=== PATIENT | female | born 1960 | race American Indian/Alaskan Native ===

== ENCOUNTER 2016-07-09 16:17 | Inpatient (IN) | payer BC ==
[2016-07-09 16:23] VITALS: BMI 17.7
[2016-07-09] MEDS ORDERED: Sodium Chloride 0.9% 1,000 ML IV STA (16:52)
[2016-07-09 17:20] LABS: ADD MANUAL DIFF? NO
--- NOTE | 2016-07-09 17:26 | ED PDOC ---
Arrival/HPI - General Chief Complaint: Abdominal Pain Time Seen by Provider: 07/09/16 16:21 Historian: Patient - History of Present Illness Narrative History of Present Illness (Text): 07/09/16 17:22 55yo female with PMhx of gastritis who present with complaint of constant diffuse sharp abdominal pain with associated nausea and vomiting since this morning. She notes previous history of similar pain in the past. she has been seen here multiple times in the past and the last time was last month. States she was suppose to see Doctor Gurpreet but have not seen him for over a year now. States she took Protonix and Zofran this morning without relieve. Denies fever, chills, diarrhea, melena, hematemesis, any other complaint. Past Medical History - Provider Review Nursing Documentation Reviewed: Yes - Infectious Disease Hx of Infectious Diseases: None - Tetanus Immunization Tetanus Immunization: Unknown - Past Medical History Past Medical History: No Previous - Cardiac Hx Cardiac Disorders: No - Pulmonary Hx Respiratory Disorders: Yes (SMOKES CIGARETTES 3 /DAY) - Neurological Hx Neurological Disorder: No - HEENT Hx HEENT Disorder: No - Renal Hx Renal Disorder: No - Endocrine/Metabolic Hx Endocrine Disorders: No - Hematological/Oncological Hx Blood Disorders: No - Integumentary Hx Dermatological Disorder: No - Musculoskeletal/Rheumatological Hx Falls: No Other/Comment: right shoulder tear - Gastrointestinal Hx Gastrointestinal Disorders: Yes Hx Gall Bladder Disease: Yes - Genitourinary/Gynecological Hx Genitourinary Disorders: No - Psychiatric Hx Psychophysiologic Disorder: Yes Hx Anxiety: Yes Hx Depression: Yes Hx Substance Use: No - Surgical History Hx Orthopedic Surgery: Yes (right hip replacement, right rotator cuff) Other/Comment: RIGHT SHOULDER SX, - Anesthesia Hx Anesthesia: Yes Hx Anesthesia Reactions: No Hx Malignant Hyperthermia: No - Suicidal Assessment Feels Threatened In Home Enviroment: No Family/Social History - Physician Review Nursing Documentation Reviewed: Yes Family/Social History: Unknown Family HX Smoking Status: Light Smoker < 10 Cigarettes Daily Hx Alcohol Use: No Hx Substance Use: No Substance used: weed Hx Substance Use Treatment: No Allergies/Home Meds Allergies/Adverse Reactions: Allergies blueberry Allergy (Verified 07/09/16 16:23) URTICARIA shellfish derived Allergy (Verified 07/09/16 16:23) RASH Home Medications: Home Meds Medication Instructions Recorded Confirmed ALPRAZolam [Xanax] 1 mg PO TID 03/29/16 07/09/16 Pantoprazole Sodium [Protonix] 40 mg PO DAILY 05/14/16 07/09/16 Sertraline [Zoloft] 0 mg PO DAILY 07/09/16 07/09/16 Review of Systems - Physician Review All systems were reviewed & negative as marked: Yes - Review of Systems Constitutional: Normal Eyes: Normal ENT: Normal Respiratory: Normal Cardiovascular: Normal Gastrointestinal: Abdominal Pain, Nausea, Vomiting. absent: Constipation, Diarrhea, Hematochezia, Hematemesis Genitourinary Female: Normal Musculoskeletal: Normal Skin: Normal Neurological: Normal Endocrine: Normal Hemo/Lymphatic: Normal Psychiatric: Normal Physical Exam Vital Signs Reviewed: Yes Vital Signs Temp Pulse Resp BP Pulse Ox 07/09/16 18:13 66 18 158/79 H 100 07/09/16 16:23 97.9 F 64 16 163/80 H 100 Temperature: Afebrile Blood Pressure: Normal Pulse: Regular Respiratory Rate: Normal Appearance: Positive for: Well-Appearing, Non-Toxic, Comfortable Pain Distress: None Mental Status: Positive for: Alert and Oriented X 3 - Systems Exam Head: Present: Atraumatic, Normocephalic Pupils: Present: PERRL Extroacular Muscles: Present: EOMI Conjunctiva: Present: Normal Mouth: Present: Moist Mucous Membranes Neck: Present: Normal Range of Motion Respiratory/Chest: Present: Clear to Auscultation, Good Air Exchange. No: Respiratory Distress, Accessory Muscle Use Cardiovascular: Present: Regular Rate and Rhythm, Normal S1, S2. No: Murmurs Abdomen: Present: Tenderness (Mild RUQ tenderness with deep palpation), Normal Bowel Sounds, Other (Soft). No: Distention, Peritoneal Signs, Rebound, Guarding , McBurney's Point Tender, Rovsing's Sign Present Back: Present: Normal Inspection Upper Extremity: Present: Normal Inspection. No: Cyanosis, Edema Lower Extremity: Present: Normal Inspection. No: Edema Neurological: Present: GCS=15, CN II-XII Intact, Speech Normal Skin: Present: Warm, Dry, Normal Color. No: Rashes Psychiatric: Present: Alert, Oriented x 3, Normal Insight, Normal Concentration Medical Decision Making ED Course and Treatment: 07/10/16 00:49 Pt presented for stated history. She was given antitussive and analgesic in ED. Lab was unremarkable. On re evaluation she states her nausea is coming back Another Zofran was ordered and Abdominal/Pelvis CT ordered Abdominal/Pelvic CT IMPRESSION: No acute findings. Result was DW the pt, but she still complained of persistent abdominal pain and nausea. Case was Dr. Angie Bueno's [employer] and pt was placed on OBS for intractable abdominal pain Plan was DW the pt and she agreed - Lab Interpretations Lab Results: 07/09/16 17:10 07/09/16 17:10 Lab Results 07/09/16 17:10: WBC 6.8 D, RBC 4.66, Hgb 14.6, Hct 41.8, MCV 89.7, MCH 31.3, MCHC 34.9, RDW 12.7, Plt Count 260, MPV 8.8, Gran % 88.8 H, Lymph % (Auto) 8.5 L , [place] % (Auto) 2.5, Eos % (Auto) 0.1 L, Baso % (Auto) 0.1, Gran # 6.03, Lymph # 0.6 L, [place] # 0.2, Eos # 0.0, Baso # 0.01, PT 11.4, INR 1.06, APTT 29.1, Sodium 141, Potassium 3.5 L, Chloride 104, Carbon Dioxide 23, Anion Gap 18, BUN 10, Creatinine 0.7, Est GFR ( Amer) > 60, Est GFR (Non-Af Amer) > 60, Random Glucose 124 H, Calcium 10.2, Total Bilirubin 1.4 H, AST 68 H, ALT 18, Alkaline Phosphatase 104, Total Protein 8.3, Albumin 4.7, Globulin 3.6, Albumin/ Globulin Ratio 1.3, Lipase 53 - Medication Orders Current Medication Orders: Discontinued Medications Famotidine (Pepcid) 20 mg IVP STAT STA Stop: 07/09/16 16:53 Last Admin: 07/09/16 17:15 Dose: 20 MG IVP Administration Document 07/09/16 17:15 SE (Rec: 07/09/16 17:15 SE [facility] [id number]) Charges for Administration # of IVP Administrations 1 Sodium Chloride (Sodium Chloride 0.9%) 1,000 mls @ 1,000 mls/hr IV .Q1H STA Stop: 07/09/16 17:51 Last Admin: 07/09/16 17:16 Dose: 1,000 MLS/HR eMAR Start Stop Document 07/09/16 17:16 SE (Rec: 07/09/16 17:16 SE [facility] [id number]) Intravenous Solution Start Date 07/09/16 Start Time 17:16 Ketorolac Tromethamine (Toradol) 30 mg IVP STAT STA Stop: 07/09/16 16:53 Last Admin: 07/09/16 17:16 Dose: 30 MG IVP Administration Document 07/09/16 17:16 SE (Rec: 07/09/16 17:16 SE [facility] [id number]) Charges for Administration # of IVP Administrations 1 Ondansetron HCl (Zofran Inj) 4 mg IVP STAT STA Stop: 07/09/16 16:53 Last Admin: 07/09/16 17:16 Dose: 4 MG IVP Administration Document 07/09/16 17:16 SE (Rec: 07/09/16 17:16 SE [facility] [id number]) Charges for Administration # of IVP Administrations 1 Ondansetron HCl (Zofran Inj) 4 mg IVP STAT STA Stop: 07/09/16 18:41 Last Admin: 07/09/16 18:53 Dose: 4 MG IVP Administration Document 07/09/16 18:53 SE (Rec: 07/09/16 18:53 SE [facility] [id number]) Charges for Administration # of IVP Administrations 1 Ondansetron HCl (Zofran Inj) 4 mg IVP STAT STA Stop: 07/09/16 23:44 Last Admin: 07/10/16 00:16 Dose: 4 MG IVP Administration Document 07/10/16 00:16 MR (Rec: 07/10/16 00:17 MR [facility] [id number]) Charges for Administration # of IVP Administrations 1 ED OBSERVATION Date of observation admission: 07/09/16 Time of observation admission: 18:25 - Observation admission statement Patient is being placed in observation because:: Lab ordered NS, Zofran, Pepcid ordered Pt will be re evaluated - Goals of Observation Goals of observation are:: Lab ordered NS, Zofran, Pepcid ordered Pt will be re evaluated Disposition/Present on Arrival - Present on Arrival Any Indicators Present on Arrival: No History of DVT/PE: No History of Uncontrolled Diabetes: No Urinary Catheter: No History of Decub. Ulcer: No History Surgical Site Infection Following: None - Disposition Have Diagnosis and Disposition been Completed?: Yes Diagnosis: Intractable abdominal pain, Gastritis Disposition: HOSPITALIZED Disposition Time: 23:25 Patient Plan: Discharge Patient Problems: Current Active Problems Problem Status Diagnosed Gastritis Acute Intractable abdominal pain Acute Condition: FAIR
[2016-07-09 17:27] LABS: BASO # 0.01 K/mm3 (0.0-2.0); BASO % 0.1 % (0.0-3.0); EOS % 0.1 % (1.5-5.0); GRAN # 6.03 (1.4-6.5); GRAN % 88.8 % (50.0-68.0); HEMATOCRIT 41.8 % (36.0-48.0); LYMPH # 0.6 (1.2-3.4); LYMPH % 8.5 % (22.0-35.0); MEAN CELL VOLUME 89.7 fL (80.0-105.0); MEAN CORPUSCULAR HEMOGLOBIN 31.3 pg (25.0-35.0); MEAN CORPUSCULAR HGB CONC 34.9 g/dl (31.0-37.0); MEAN PLATELET VOLUME 8.8 fl (7.0-11.0); MONO # 0.2 (0.1-0.6); MONO % 2.5 % (1.0-6.0); PLATELET COUNT 260 10^3/uL (120.0-450.0); RED CELL DISTRIBUTION WIDTH 12.7 % (11.5-14.5); WHITE BLOOD COUNT 6.8 10^3/ul (4.5-11.0)
[2016-07-09 17:36] LABS: INR 1.06 (0.93-1.08); PARTIAL THROMBOPLASTIN TIME 29.1 Seconds (23.7-30.8)
[2016-07-09 17:44] LABS: ALB/GLOB RATIO 1.3 (1.1-1.8); ALKALINE PHOSPHATASE 104 U/L (38-133); ALT/SGPT 18 U/L (7-56); AST/SGOT 68 U/L (15-39); BILIRUBIN,TOTAL 1.4 mg/dL (0.2-1.3); BLOOD UREA NITROGEN 10 mg/dL (7-21); CARBON DIOXIDE 23 mmol/L (21-33); CHLORIDE 104 mmol/L (98-107); GFR AFRICAN-AMERICAN > 60; GLUCOSE,RANDOM 124 mg/dL (70-110); LIPASE 53 U/L (23-300); POTASSIUM 3.5 mmol/L (3.6-5.0); SODIUM 141 mmol/L (132-148); TOTAL PROTEIN 8.3 g/dL (5.8-8.3)
[2016-07-09 17:45] LABS: CALCIUM 10.2 mg/dL (8.4-10.5)
[2016-07-10] MEDS ORDERED: Pneumococcal 23-Valent Vaccine IM ONE (03:18)
--- NOTE | 2016-07-10 03:25 | CP.PCM.PN ---
Subjective - Date & Time of Evaluation Date of Evaluation: 07/10/16 Time of Evaluation: 03:24 - Subjective Subjective: Patient was seen because she complained of nausea,abdominal pain,nervousness. Has no other complaints. States that she takes xanax 1 mg po 3 times a day and badly needs it. Denies chest solitario, sob, vomiting, diarrohea, constipation. This 55 year old woman was admitted with sharp abdominal pain, nausea, vomiting, Gastritis. Has PMH of HTN, gastritis, anxiety, depression , sbo, smoker, right shoulder tear, weed use,avascular necrosis of right hip. Objective - Vital Signs/Intake and Output Vital Signs (last 24 hours): Temp Pulse Resp BP Pulse Ox 98.1 F 60 20 121/80 100 07/10/16 03:08 07/10/16 03:08 07/10/16 03:08 07/10/16 03:08 07/10/16 02:18 - Medications Medications: Current Medications Pneumococcal Polyvalent Vaccine (Pneumovax 23 Vaccine) 0.5 ml IM .ONCE ONE Stop: 07/10/16 03:19 - Labs Labs: PT 11.4 Seconds (9.9-11.8) 07/09/16 17:10 INR 1.06 (0.93-1.08) 07/09/16 17:10 APTT 29.1 Seconds (23.7-30.8) 07/09/16 17:10 - Constitutional Appears: Well, No Acute Distress - Head Exam Head Exam: ATRAUMATIC, NORMAL INSPECTION, NORMOCEPHALIC - Eye Exam Eye Exam: Normal appearance - ENT Exam ENT Exam: Mucous Membranes Dry - Neck Exam Neck Exam: Normal Inspection - Respiratory Exam Respiratory Exam: NORMAL BREATHING PATTERN - Cardiovascular Exam Cardiovascular Exam: absent: JVD - GI/Abdominal Exam GI & Abdominal Exam: absent: Distended - Rectal Exam Rectal Exam: Deferred - Extremities Exam Extremities Exam: Normal Inspection - Back Exam Back Exam: NORMAL INSPECTION - Neurological Exam Neurological Exam: Alert, Oriented x3 - Psychiatric Exam Psychiatric exam: Normal Affect, Normal Mood - Skin Skin Exam: Dry Assessment and Plan - Assessment and Plan (Free Text) Assessment: A/P:Nausea. Abdominal pain. Anxiety. Gastritis. HTN. Zofran 4 mg IV Stat. Ativan 0.5 mg IV Stat. Protonix 40 mg IV Stat.
--- NOTE | 2016-07-10 08:46 | HP ---
HISTORY OF PRESENT ILLNESS: A 55-year-old white female with history of mild hypertension, alcohol ab use, recurrent abdominal pain admitted to the hospital with nausea, vomiting, severe abdominal pain, low-grade fever - spiked to 102 while here. Denies any diarrhea. Denies any history of cholecystiti s or appendicitis in the past, admitted with intractable pain. The patient denies any chills, but do es complain of some low-grade fever. Denies any cough, sputum production, chest pain, shortness of b reath, diaphoresis, etc. PHYSICAL EXAMINATION: GENERAL: Shows a well-developed, but thin black female in a position with abdominal pain. ABDOMEN: Nondistended. Bowel sounds are hypoactive. It is minimally tender in all quadrants. CHEST: Clear to auscultation and percussion. HEART: Regular sinus rhythm. No S3, no murmurs. NEUROLOGIC: Grossly intact. EXTREMITIES: Without cyanosis, clubbing, or edema. IMPRESSION: Gastroenteritis, possible early pathology, as far as the gallbladder or appendix. CT is pending. PLAN: Plan is to hydrate, Pepcid, await cultures, check serologies, and CT. Donavan Adams MD cc: [id number] TT: 07/10/2016 08:46:25 jn
--- NOTE | 2016-07-10 08:49 | CT ---
PROCEDURE: CT Abdomen and Pelvis without intravenous contrast HISTORY: Abdominal pain COMPARISON: 05/14/2016 and 03/29/2016 TECHNIQUE: CT scan of the abdomen and pelvis was performed without administration of oral or intravenous contrast. Coronal and sagittal reformatted images were obtained. Radiation dose: Total exam DLP = 202.23 mGy-cm. This CT exam was performed using one or more of the following dose reduction techniques: Automated exposure control, adjustment of the mA and/or kV according to patient size, and/or use of iterative reconstruction technique. FINDINGS: LOWER THORAX: The lung bases are clear. LIVER: The liver is normal in size. There is no intrahepatic biliary ductal dilatation. GALLBLADDER AND BILE DUCTS: There are no calcified gallstones. PANCREAS: The pancreas is normal in size. There are no calcifications or ductal dilatation. SPLEEN: The spleen is normal in size. ADRENALS: Both adrenal glands are normal in size. KIDNEYS AND URETERS: Both kidneys are normal in size without hydronephrosis or nephrolithiasis. VASCULATURE: Unremarkable. No aortic aneurysm. BOWEL: There is mild fecalization of small bowel contents and prominent valvulae Sarah continent is. The colon is decompressed and unremarkable. APPENDIX: Unremarkable. Normal appendix. PERITONEUM: Unremarkable. No free fluid. No free air. LYMPH NODES: Unremarkable. No enlarged lymph nodes. BLADDER: Unremarkable. REPRODUCTIVE: Unremarkable. BONES: No acute fracture. Status post right hip arthroplasty. OTHER FINDINGS: None. IMPRESSION: Mild prominence of small bowel loops with mild fecalization of small bowel contents could be related to chronic stasis. No evidence of bowel obstruction. No CT evidence for acute appendicitis or obstructive uropathy. A preliminary report was provided by [facility].
[2016-07-10] MEDS: Sodium Chloride 0.9% 1,000 ML IV SCH ×2 (09:31→20:17)
--- NOTE | 2016-07-10 10:28 | CON ---
DATE: 07/10/2016 GASTROENTEROLOGY CONSULTATION REQUESTING PHYSICIAN: Donavan Adams MD. REASON FOR CONSULTATION: I have been asked to see this 55-year-old female with a longstanding histor y of chronic recurrent abdominal pain, anxiety disorder, depression, degenerative joint disease, stat us post right hip replacement who comes to the hospital with a 1-day history of nausea, vomiting, and diffuse abdominal pain. This was associated with a fever between 101-102 degrees Fahrenheit. The p atient states that her symptoms started after she found out that her has prostate cancer. Th e patient was hospitalized back in 04/2016 for abdominal pain, nausea, and vomiting, and at that time was found to have a partial small-bowel obstruction, which resolved with conservative medical treatme nt. CT scan of the abdomen and pelvis performed on this admission showed almost complete resolution of he r dilated loops of small bowel with now minimally distended small-bowel loops without any air fluid l evels. She denies any fevers or chills. The patient states that she had a bowel movement yesterday. PAST MEDICAL HISTORY: As above. Again, the patient has a history of chronic recurrent abdominal lesley n, degenerative joint disease, anxiety, depression. PAST SURGICAL HISTORY: Notable for right hip replacement and right rotator cuff surgery. SOCIAL HISTORY: She denies alcohol use or drug use. She smokes less than a half pack of cigarettes per day. MEDICATIONS: Her medications currently include alprazolam, pantoprazole, and sertraline. FAMILY HISTORY: Noncontributory. REVIEW OF SYSTEMS: A 14-point review of systems is notable for abdominal pain, nausea, vomiting. PHYSICAL EXAMINATION: GENERAL: Well-developed female, lying in bed in no acute distress. VITAL SIGNS: Reveal temperature of 99.2, blood pressure 163/80, heart rate of 80. T-max is 100.3. HEENT: Reveal sclerae to be white. Oral mucosa is moist. NECK: Supple. CHEST: Reveals lungs to be clear. HEART: Reveals a regular rate and rhythm. ABDOMEN: Soft, nontender. No mass. EXTREMITIES: Show no edema. LABORATORY DATA: Reveal white blood cell count 6.8. On admission to the Emergency Room, it was 12.8 . Chemistries reveal potassium of 3.5, blood sugar 124, total bilirubin 1.4, AST of 68, lipase of 62 . IMPRESSION: A 55-year-old female with chronic recurrent abdominal pain, history of partial small-bow el obstruction 2 months ago, now admitted with abdominal pain, nausea, and vomiting. CT scan of the abdomen and pelvis shows no evidence of small-bowel obstruction, no acute findings. The patient may have an acute gastroenteritis with the fever. White count has come down to normal. RECOMMENDATIONS: 1. Continue conservative treatment. I will start the patient on IV Reglan, as well as IV pantoprazo le. 2. Advance diet as tolerated. 3. Check blood cultures. Darwin Vázquez MD cc: [id number] TT: 07/10/2016 10:28:28 Confirmation # [id number] Dictation # [id number] jn
[2016-07-11] MEDS: Sodium Chloride 0.9% 1,000 ML IV SCH (05:43)
[2016-07-11 06:47] LABS: PH,URINE 6.5 (4.7-8.0); URINE BILIRUBIN NEGATIVE (NEGATIVE); URINE BLOOD SMALL (NEGATIVE); URINE GLUCOSE (UA) NEGATIVE (NEGATIVE); URINE KETONE 15 mg/dL (NEGATIVE); URINE LEUKOCYTE ESTERASE NEGATIVE Leu/uL (NEGATIVE); URINE PROTEIN TRACE mg/dL (<30 mg/dL); URINE UROBILINOGEN 0.2 E.U./dL (<1 E.U./dL)
[2016-07-11 06:48] LABS: URINE APPEARANCE CLEAR (CLEAR); URINE COLOR YELLOW (YELLOW)
[2016-07-11 07:05] LABS: URINE WBC 0 - 2 /hpf (0-6)
[2016-07-11 07:06] LABS: URINE BACTERIA RARE (NEG)
[2016-07-11 09:19] VITALS: BP 144/87; PULSE 67; RESP 18; TEMP 99.2; O2SAT 98
--- NOTE | 2016-07-11 09:35 | PN ---
DATE: 07/11/2016 A 55-year-old black female admitted to the hospital with abdominal pain, early bowel obstruction, kaci sea and vomiting, dehydration. The patient has had history of small bowel obstruction in the past po sitive. She did have elevated fevers, which is resolved now. She still has some nausea, but no furt her vomiting. She is tolerating her clear liquids today. PLAN: To increase her diet. DC home if improved. Vital signs are stable. is unremarkable except for some fatigue and weakness, and some slight nausea. Donavan Adams MD cc: [id number] TT: 07/11/2016 09:35:13 Confirmation # [id number] Dictation # [id number] jn
--- NOTE | 2016-07-11 11:06 | PN ---
DATE: 07/11/2016 SUBJECTIVE: The patient is lying in bed. Her last episode of vomiting was last night. She has not had any vomiting this morning. She tolerated some fruit cocktail. Her abdominal pain is less. She has not had any further fevers or chills. PHYSICAL EXAMINATION: VITAL SIGNS: Reveal temperature of 99.2, blood pressure 144/87, heart rate 67. ABDOMEN: Soft, less diffuse tenderness. No rebound, no guarding. There are no new laboratory data. IMPRESSION: A 55-year-old female admitted to the hospital with abdominal pain, nausea, vomiting, wit h CT scan of the abdomen and pelvis showing improvement of a small bowel obstructive pattern from 04/24 017 with decreased distention of the small bowel, presenting with fever this admission. I suspect th at this is a gastroenteritis. She is moving her bowels. She has not had any further nausea and vomi ting. RECOMMENDATIONS: The patient is to be discharged home with outpatient followup including a low resid ue, low-fat, lactose-free diet. Darwin Vázquez MD cc: [id number] TT: 07/11/2016 11:06:20 Confirmation # [id number] Dictation # [id number]
[2016-07-15 15:02] LABS: ACETONE None Detected; ETHANOL None Detected; ISOPROPANOL None Detected; METHANOL None Detected
== END 2016-07-11 12:33 | disposition home or self-care (01) | DRG 392 ==
LOC: ED 16:17 → EROBSV 18:24 → ERH 23:25 → 3RSO 07-10 02:36 → OBSVTOIN 07-10 15:17
PROVIDERS: ADMIT Internal Medicine; ATTEND Internal Medicine
DX: K52.9 Noninfective gastroenteritis and colitis, unspecified (principal); I10 Essential (primary) hypertension; K29.00 Acute gastritis without bleeding; F32.9 Major depressive disorder, single episode, unspecified; F41.9 Anxiety disorder, unspecified; Z96.641 Presence of right artificial hip joint; M19.90 Unspecified osteoarthritis, unspecified site; F17.210 Nicotine dependence, cigarettes, uncomplicated; F12.90 Cannabis use, unspecified, uncomplicated

== ENCOUNTER 2016-08-11 23:01 | Observation (INO) | payer BC ==
[2016-08-11 23:15] VITALS: BMI 16.1
[2016-08-11] MEDS ORDERED: Morphine 2 mg/ml ISec IVP STA (23:39)
--- NOTE | 2016-08-11 23:43 | ED PDOC ---
Arrival/HPI - General Chief Complaint: GI Problem Time Seen by Provider: 08/11/16 23:32 Historian: Patient - History of Present Illness Narrative History of Present Illness (Text): 08/11/16 23:41 Nereida Rahman is a 55 year old female, with a history of gastroenteritis, presents to the emergency department complaining of abdominal pain associated with nausea and frequent episodes of vomiting since 4 pm today. states that symptoms are similar to pervious episodes of "gastroenteritis". Denies any fever, chills, headache, dizziness, chest pain, shortness of breath, back pain, urinary symptoms, or any other complaints at this time. Time/Duration: 4-6 hours Symptom Onset: Gradual Symptom Course: Unchanged Severity Level: Mild Activities at Onset: Light Context: Home Past Medical History - Provider Review Nursing Documentation Reviewed: Yes - Infectious Disease Hx of Infectious Diseases: None - Tetanus Immunization Tetanus Immunization: Unknown - Past Medical History Past Medical History: No Previous - Cardiac Hx Cardiac Disorders: No - Pulmonary Hx Respiratory Disorders: Yes (SMOKES CIGARETTES 3 /DAY) - Neurological Hx Neurological Disorder: No - HEENT Hx HEENT Disorder: No - Renal Hx Renal Disorder: No - Endocrine/Metabolic Hx Endocrine Disorders: No - Hematological/Oncological Hx Blood Disorders: No - Integumentary Hx Dermatological Disorder: No - Musculoskeletal/Rheumatological Hx Falls: Yes - Gastrointestinal Hx Gastrointestinal Disorders: Yes Hx Gall Bladder Disease: Yes - Genitourinary/Gynecological Hx Genitourinary Disorders: No - Psychiatric Hx Psychophysiologic Disorder: Yes Hx Anxiety: Yes Hx Depression: Yes Hx Substance Use: No - Surgical History Hx Orthopedic Surgery: Yes (right hip replacement, right rotator cuff) Other/Comment: RIGHT SHOULDER SX, - Anesthesia Hx Anesthesia: Yes Hx Anesthesia Reactions: No Hx Malignant Hyperthermia: No - Suicidal Assessment Feels Threatened In Home Enviroment: No Family/Social History - Physician Review Nursing Documentation Reviewed: Yes Family/Social History: No Known Family HX Smoking Status: Current Some Days Smoker Hx Alcohol Use: No Hx Substance Use: No Substance used: weed Hx Substance Use Treatment: No Allergies/Home Meds Allergies/Adverse Reactions: Allergies blueberry Allergy (Verified 07/09/16 16:23) URTICARIA shellfish derived Allergy (Verified 07/09/16 16:23) RASH Home Medications: Home Meds Medication Instructions Recorded Confirmed ALPRAZolam [Xanax] 1 mg PO TID 03/29/16 07/10/16 Pantoprazole Sodium [Protonix] 40 mg PO DAILY 05/14/16 07/10/16 Sertraline [Zoloft] 0 mg PO DAILY 07/09/16 07/09/16 Review of Systems - Physician Review All systems were reviewed & negative as marked: Yes - Review of Systems Constitutional: Normal. absent: Fatigue, Fevers Gastrointestinal: Abdominal Pain, Nausea, Vomiting. absent: Diarrhea Neurological: Normal. absent: Headache, Dizziness Psychiatric: Normal Physical Exam Vital Signs Reviewed: Yes Vital Signs Temp Pulse Resp Pulse Ox 08/11/16 23:13 97.9 F 64 16 100 Temperature: Afebrile Blood Pressure: Normal Pulse: Regular Respiratory Rate: Normal Appearance: Positive for: Well-Appearing, Non-Toxic, Comfortable Pain Distress: None Mental Status: Positive for: Alert and Oriented X 3 - Systems Exam Head: Present: Atraumatic, Normocephalic Pupils: Present: PERRL Conjunctiva: Present: Normal Mouth: Present: Moist Mucous Membranes Respiratory/Chest: Present: Clear to Auscultation, Good Air Exchange. No: Respiratory Distress, Accessory Muscle Use Cardiovascular: Present: Regular Rate and Rhythm, Normal S1, S2. No: Murmurs Abdomen: Present: Tenderness (mid abdomen), Normal Bowel Sounds. No: Distention , Peritoneal Signs, Rebound, Guarding Upper Extremity: Present: Normal Inspection. No: Cyanosis, Edema Lower Extremity: Present: Normal Inspection. No: Edema Neurological: Present: GCS=15, CN II-XII Intact, Speech Normal, Motor Func Grossly Intact, Normal Sensory Function Skin: Present: Warm, Dry, Normal Color. No: Rashes Psychiatric: Present: Alert, Oriented x 3, Normal Insight, Normal Concentration Medical Decision Making ED Course and Treatment: 08/11/16 23:46 Impression: A 55 year old female who presents to the emergency department complaining of lower abdominal pain associated with nausea and vomiting since 4 pm today. Plan: -- CT abdomen pelvis -- Labs -- Morphine -- IV fluids -- Zofran -- HCG -- Urinalysis -- Reassess and disposition Progress Notes: 08/12/16 03:10 CT abdomen pelvis reviewed: No acute findings. 08/12/16 03:23 Case discussed with 's nurse practitioner who is aware of the plan to place pt. med-surg for ongoing management /treatment of intractable vomiting. Accepts patient under 's service with Dr. Vázquez on GI consult. - Lab Interpretations Lab Results: 08/12/16 00:04 08/12/16 00:04 Lab Results 08/12/16 01:00: Urine Color Light yellow, Urine Appearance Clear, Urine pH 8.0, Ur Specific Bee 1.020, Urine Protein Negative, Urine Glucose (UA) Negative, Urine Ketones Trace H, Urine Blood Negative, Urine Nitrate Negative, Urine Bilirubin Negative, Urine Urobilinogen 0.2, Ur Leukocyte Esterase Negative, Urine HCG, Qual Negative 08/12/16 00:04: WBC 9.0 D, RBC 4.57, Hgb 14.4, Hct 41.3, MCV 90.4, MCH 31.5, MCHC 34.9, RDW 12.6, Plt Count 280, MPV 9.0 08/12/16 00:04: Sodium 139, Potassium 3.8, Chloride 102, Carbon Dioxide 26, Anion Gap 15, BUN 10, Creatinine 0.7, Est GFR ( Amer) > 60, Est GFR (Non- Af Amer) > 60, Random Glucose 120 H, Calcium 9.8, Total Bilirubin 1.3, AST 70 H , ALT 26, Alkaline Phosphatase 98, Total Protein 8.1, Albumin 5.0 H, Globulin 3.1, Albumin/Globulin Ratio 1.6, Lipase 31 I have reviewed the lab results: Yes - RAD Interpretation Narrative RAD Interpretations (Text): EXAM: CT Abdomen and Pelvis Without Intravenous Contrast FINDINGS: Abdomen pelvis:Liver, gallbladder, spleen, pancreas, both adrenals and both kidneys are normal.No renal calculi or hydronephrosis.Normal caliber aorta. Normal caliber appendix. No bowel obstruction. Unremarkable uterus. No adnexal masses. No free fluid or free air. There is some artifact in the pelvis from a right hip arthroplasty. IMPRESSION: No acute findings. Radiology Orders: 08/12/16 01:29 ABD & PELVIS W/O PO OR IV CONT [CT] Stat Online Marketer: Radiologist - Medication Orders Current Medication Orders: Sodium Chloride (Sodium Chloride 0.9%) 1,000 mls @ 100 mls/hr IV .Q10H STA Stop: 08/12/16 13:23 Ondansetron HCl (Zofran Inj) 4 mg IVP Q4H PRN PRN Reason: Nausea/Vomiting Stop: 08/12/16 11:00 Discontinued Medications Diphenhydramine HCl (Benadryl) 25 mg IVP ONCE ONE Stop: 08/12/16 01:18 Last Admin: 08/12/16 01:31 Dose: 25 mg Sodium Chloride (Sodium Chloride 0.9%) 1,000 mls @ 999 mls/hr IV .Q1H1M STA Stop: 08/12/16 00:39 Last Admin: 08/12/16 01:45 Dose: 999 mls/hr Metoclopramide HCl (Reglan) 10 mg IVP ONCE ONE Stop: 08/12/16 01:18 Last Admin: 08/12/16 01:31 Dose: 10 mg Morphine Sulfate (Morphine) 2 mg IVP STAT STA Stop: 08/11/16 23:40 Last Admin: 08/12/16 00:12 Dose: 2 mg Ondansetron HCl (Zofran Inj) 4 mg IVP ONCE ONE Stop: 08/11/16 23:40 Last Admin: 08/12/16 00:12 Dose: 4 mg Ondansetron HCl (Zofran Inj) Confirm Administered Dose 4 mg .ROUTE .STK-MED ONE Stop: 08/11/16 23:46 - Scribe Statement The provider has reviewed the documentation as recorded by the Stevan Gomez Provider Attestation: All medical record entries made by the Breanaibguillermo were at my direction and personally dictated by me. I have reviewed the chart and agree that the record accurately reflects my personal performance of the history, physical exam, medical decision making, and the department course for this patient. I have also personally directed, reviewed, and agree with the discharge instructions and disposition. Disposition/Present on Arrival - Present on Arrival Any Indicators Present on Arrival: No History of DVT/PE: No History of Uncontrolled Diabetes: No Urinary Catheter: No History of Decub. Ulcer: No History Surgical Site Infection Following: None - Disposition Have Diagnosis and Disposition been Completed?: Yes Diagnosis: Intractable vomiting, Intractable abdominal pain Disposition: HOSPITALIZED Disposition Time: 03:34 Patient Plan: Observation Patient Problems: Current Active Problems Problem Status Onset Intractable abdominal pain Acute Intractable vomiting Acute Condition: STABLE [facility] - Follow up with primary
[2016-08-12] MEDS: Sodium Chloride 0.9% 1,000 ML IV STA ×2 (00:12→01:45)
[2016-08-12 00:46] LABS: ALKALINE PHOSPHATASE 98 U/L (38-133); ALT/SGPT 26 U/L (7-56); AST/SGOT 70 U/L (15-39); BILIRUBIN,TOTAL 1.3 mg/dL (0.2-1.3); BLOOD UREA NITROGEN 10 mg/dL (7-21); CALCIUM 9.8 mg/dL (8.4-10.5); CARBON DIOXIDE 26 mmol/L (21-33); CHLORIDE 102 mmol/L (95-110); GFR AFRICAN-AMERICAN > 60; GLUCOSE,RANDOM 120 mg/dL (70-110); LIPASE 31 U/L (23-300); POTASSIUM 3.8 mmol/L (3.6-5.0); SODIUM 139 mmol/L (132-148); TOTAL PROTEIN 8.1 g/dL (5.8-8.3)
[2016-08-12 00:51] LABS: ALB/GLOB RATIO 1.6 (1.1-1.8)
[2016-08-12 00:57] LABS: HEMATOCRIT 41.3 % (36.0-48.0); MEAN CELL VOLUME 90.4 fL (80.0-105.0); MEAN CORPUSCULAR HEMOGLOBIN 31.5 pg (25.0-35.0); MEAN CORPUSCULAR HGB CONC 34.9 g/dl (31.0-37.0); RED CELL DISTRIBUTION WIDTH 12.6 % (11.5-14.5)
[2016-08-12] MEDS ORDERED: DiphenhydrAMINE 50 mg/ml Inj IVP ONE (01:17)
[2016-08-12 01:18] LABS: URINE BILIRUBIN NEGATIVE (NEGATIVE); URINE BLOOD NEGATIVE (NEGATIVE); URINE GLUCOSE (UA) NEGATIVE (NEGATIVE); URINE KETONE TRACE mg/dL (NEGATIVE); URINE LEUKOCYTE ESTERASE NEGATIVE Leu/uL (NEGATIVE); URINE PROTEIN NEGATIVE mg/dL (<30 mg/dL); URINE UROBILINOGEN 0.2 E.U./dL (<1 E.U./dL)
[2016-08-12 01:23] LABS: URINE APPEARANCE CLEAR (CLEAR); URINE COLOR LIGHT YELLOW (YELLOW)
[2016-08-12] MEDS ORDERED: Sodium Chloride 0.9% 1,000 ML IV STA (03:24)
--- NOTE | 2016-08-12 07:54 | CT ---
PROCEDURE: CT Abdomen and Pelvis without intravenous contrast HISTORY: pain COMPARISON: None. TECHNIQUE: Without contrast.. Contrast Dose: 0 Radiation dose: Total exam DLP = 244.68 mGy-cm. This CT exam was performed using one or more of the following dose reduction techniques: Automated exposure control, adjustment of the mA and/or kV according to patient size, and/or use of iterative reconstruction technique. FINDINGS: LOWER THORAX: Unremarkable. LIVER: Unremarkable. No gross lesion or ductal dilatation. GALLBLADDER AND BILE DUCTS: Unremarkable. PANCREAS: Unremarkable. No gross lesion or ductal dilatation. SPLEEN: Unremarkable. ADRENALS: Unremarkable. No mass. KIDNEYS AND URETERS: Unremarkable. No hydronephrosis. No solid mass. VASCULATURE: Unremarkable. No aortic aneurysm. BOWEL: Unremarkable. No obstruction. No gross mural thickening. APPENDIX: Not identified. No secondary findings to suggest acute appendicitis. PERITONEUM: Unremarkable. No free fluid. No free air. LYMPH NODES: Unremarkable. No enlarged lymph nodes. BLADDER: Unremarkable. REPRODUCTIVE: Unremarkable uterus. BONES: Right hip arthroplasty. OTHER FINDINGS: None. IMPRESSION: No bowel obstruction. No evidence of urinary calculus or urinary tract obstruction. Right hip arthroplasty. Otherwise unremarkable examination. Preliminary interpretation of this examination was reported by [employer] at 2:07 a.m. on 08/12/2016. There is concurrence of this report with the preliminary interpretation.
--- NOTE | 2016-08-12 09:16 | HP ---
HISTORY OF PRESENT ILLNESS: The patient is a 55-year-old black female admitted to the hospital with intractable abdominal pain, nausea, vomiting. The patient has had multiple episodes in the past. CT of the abdomen and pelvis was negative for obstruction or urinary tract stones. The patient is afeb rile. Vital signs are stable. Blood pressure is slightly elevated at 162/84. Her white count was 9 .0. Laboratory data were unremarkable. Tox screen is still pending. Lipase is still pending. Cons ult and Dr. Vázquez is pending. PHYSICAL EXAMINATION: GENERAL: Shows a well-developed, thin black female in no apparent distress this morning, but drowsy. HEENT: Essentially normal limits. HEART: Regular sinus rhythm. No significant murmurs. ABDOMEN: Soft. Bowel sounds are hypoactive. Abdomen is nondistended. There is no tenderness on pa lpation. There is no organomegaly noted. There is no Roche's sign. CHEST: Clear to auscultation and percussion. IMPRESSION: Intractable nausea, vomiting, abdominal pain of unknown origin. History of depression, history of gastritis in the past. PLAN: To restart diet, hydrate. Recheck tox screen and lipase and GI consult. Donavan Adams MD cc: [id number] TT: 08/12/2016 09:15:57 md
[2016-08-12] MEDS: Pantoprazole 40 mg EC Tab PO SCH (10:23)
--- NOTE | 2016-08-12 12:18 | CON ---
DATE: 08/12/2016 REQUESTING PHYSICIAN: Dr. Donavan Adams. REASON FOR CONSULTATION: I have been asked to see this 55-year-old female with a history of chronic recurrent abdominal pain, nausea and vomiting. The patient has been admitted to the hospital on 2 prior occasions, in 06/2016 and 04/2016, for similar complaints. She has had numerous Emergency Room visits over the last 2 years with complaints of abdominal pain. She has had numerous imaging studies of the abdomen including a CAT scan which has been negative for any acute findings. She denies any hematemesis, melena, rectal bleeding, fevers or chills. She has had a negative endoscopies and colonoscopies in the past. CT scan of the abdomen and pelvis performed in the Emergency Room again is negative for any acute findings. PAST MEDICAL HISTORY: Notable for chronic recurrent abdominal pain, nausea, vomiting, anxiety, depression, degenerative joint disease. PAST SURGICAL HISTORY: Notable for right hip replacement, right rotator cuff surgery. SOCIAL HISTORY: She denies alcohol use. She does smoke up to a half pack of cigarettes per day. FAMILY HISTORY: Noncontributory. REVIEW OF SYSTEMS: A 14-point review of systems is notable for abdominal pain, nausea and vomiting. PHYSICAL EXAMINATION: GENERAL: Well-developed female lying in bed, in no acute distress. VITAL SIGNS: Reveal temperature of 98, blood pressure 162/84, heart rate is 78. HEENT: Reveal sclerae to be white, conjunctivae pink. NECK: Supple. CHEST: Reveals lungs to be clear. HEART: Reveals regular rate and rhythm. ABDOMEN: Soft. There is mild midabdominal tenderness. No rebound, no guarding. EXTREMITIES: Show no edema. LABORATORY DATA: Reveal white blood cell count 9, hemoglobin 14.4. Chemistries reveal AST 70, ALT 26, normal electrolytes. Urinalysis is normal. Toxicology screen in the past was positive for cocaine metabolites, cotinine, diphenhydramine, alprazolam, nordiazepam, temazepam, diazepam and THC. IMPRESSION: A 55-year-old female with chronic recurrent abdominal pain, nausea and vomiting with multi-substance drug use including diazepam, cocaine, nicotine , alprazolam and cannabis. I suspect her symptoms are related to this polysubstance use. Cannabis can cause hyperemesis syndrome. RECOMMENDATIONS: Continue supportive care including IV fluid hydration, Zofran and advance diet as tolerated. Darwin Vázquez MD cc: [id number] TT: 08/12/2016 12:17:43 Confirmation # [id number] Dictation # [id number] mn MTDD
[2016-08-12] MEDS: Sodium Chloride 0.9% 1,000 ML IV SCH (16:42)
[2016-08-12 17:25] LABS: ADD MANUAL DIFF? NO
[2016-08-12 17:47] LABS: GRAN % 84.5 % (50.0-68.0); HEMATOCRIT 41.8 % (36.0-48.0); LYMPH % 9.9 % (22.0-35.0); MEAN CELL VOLUME 88.7 fL (80.0-105.0); MEAN CORPUSCULAR HEMOGLOBIN 31.2 pg (25.0-35.0); MEAN CORPUSCULAR HGB CONC 35.2 g/dl (31.0-37.0); MONO % 5.6 % (1.0-6.0); PLATELET COUNT 305 10^3/uL (120.0-450.0); RED CELL DISTRIBUTION WIDTH 12.4 % (11.5-14.5); WHITE BLOOD COUNT 10.6 10^3/ul (4.5-11.0)
[2016-08-12 17:48] LABS: GRAN # 8.99 (1.4-6.5); LYMPH # 1.1 (1.2-3.4); MONO # 0.6 (0.1-0.6)
--- NOTE | 2016-08-13 10:21 | PN ---
DATE: 08/13/2016 SUBJECTIVE: A 55-year-old black female admitted to the hospital with intractable nausea and vomiting , negative CT scan, negative ____. The patient did spike to 102 last night. The patient has been cu ltured, pending. Her tox screen did show cannabis and cocaine and benzodiazepines. The patient also has a history of drinking. The patient still has nausea and vomiting and severe abdominal pain toda y. She is going for an endoscopy with Dr. Vázquez today. Cultures are pending on this patient. Physic al examination is unchanged. Her abdomen is soft, but the patient is vomiting at the bedside. She h as been given Zofran. She is being hydrated. Vital signs are stable. Plan is to do an endoscopy and try to control the vomiting. Once the patient can tolerate some liqui ds and solids, she will be discharged home. Discussion also as far as possible substance abuse couns eling to follow. PHYSICAL EXAMINATION: VITAL SIGNS: Stable. CHEST: Clear to auscultation and percussion. ABDOMEN: As stated, hypoactive bowel sounds, minimal discomfort. No distention. IMPRESSION: Intractable nausea and vomiting, substance abuse in a 55-year-old black female. Donavan Adams MD cc: [id number] TT: 08/13/2016 10:21:03 Confirmation # [id number] Dictation # [id number] tn
[2016-08-13 11:12] VITALS: O2SAT 100
[2016-08-13] MEDS ORDERED: Propofol 10 mg/ml Inj (20 ML) ONE (11:16)
[2016-08-13] MEDS ORDERED: Lactated Ringer's 1,000 ML IV SCH (11:33)
[2016-08-13 11:52] VITALS: TEMP 98.2
[2016-08-13 12:16] VITALS: BP 173/80; PULSE 64; RESP 17
[2016-08-13] MEDS: Pantoprazole 40 mg EC Tab PO SCH (12:52)
[2016-08-13] MEDS: Sodium Chloride 0.9% 1,000 ML IV SCH (13:12)
== END 2016-08-13 21:07 | disposition home or self-care (01) ==
LOC: ED 23:01 → ERH 08-12 03:22 → 5RSO 08-12 05:18
PROVIDERS: ADMIT Internal Medicine; ATTEND Internal Medicine
DX: K29.30 Chronic superficial gastritis without bleeding (principal); K44.9 Diaphragmatic hernia without obstruction or gangrene; R11.2 Nausea with vomiting, unspecified; M19.90 Unspecified osteoarthritis, unspecified site; F41.9 Anxiety disorder, unspecified; F32.9 Major depressive disorder, single episode, unspecified; F14.10 Cocaine abuse, uncomplicated; F12.10 Cannabis abuse, uncomplicated; F17.210 Nicotine dependence, cigarettes, uncomplicated; Z96.641 Presence of right artificial hip joint
CPT/HCPCS: 43239; 74176; 80053; 81003; 83690; 84703; 85025; 85027; 87040; 87086; 88305; 88342; 96361; 96374; 96375; 96376; 99285; G0378; G0480; J1200; J2270; J2405; J2704; J2765; J3010; J7040

== ENCOUNTER 2016-10-20 23:47 | Observation (INO) | payer MEDICAID, OTHER ==
[2016-10-21] VITALS: BMI 17.7
[2016-10-21] MEDS ORDERED: Sodium Chloride 0.9% 1,000 ML IV STA ×2 (00:12→06:03)
[2016-10-21] MEDS ORDERED: Morphine 4 mg/ml ISec IVP STA ×3 (00:12→03:39)
--- NOTE | 2016-10-21 00:17 | ED PDOC ---
Arrival/HPI - General Time Seen by Provider: 10/21/16 00:01 Historian: Patient - History of Present Illness Narrative History of Present Illness (Text): 10/21/16 00:11 Nereida Rahman is a 55 year old female, with a history of recurrent abdominal pain , anxiety and depression, presents to the emergency department complaining of diffuse abdominal pain associated with nausea and vomiting. Patient's states that she has recurrent "gastroenteritis" symptoms every few months. Patient woke up yesterday morning with these symptoms. Patient took Zofran and Protonix in the morning, but states she vomited the medications. Denies any fever, chills, headache, dizziness, chest pain, shortness of breath, diarrhea, back pain, urinary symptoms, or any other complaints at this time. Time/Duration: Other (today morning ) Symptom Onset: Gradual Severity Level: Mild Context: Home Past Medical History - Provider Review Nursing Documentation Reviewed: Yes - Infectious Disease Hx of Infectious Diseases: None - Tetanus Immunization Tetanus Immunization: Unknown - Past Medical History Past Medical History: No Previous - Cardiac Hx Cardiac Disorders: No - Pulmonary Hx Respiratory Disorders: Yes (SMOKES CIGARETTES 3 /DAY) - Neurological Hx Neurological Disorder: No - HEENT Hx HEENT Disorder: No - Renal Hx Renal Disorder: No - Endocrine/Metabolic Hx Endocrine Disorders: No - Hematological/Oncological Hx Blood Transfusions: No Hx Blood Transfusion Reaction: No - Integumentary Hx Dermatological Disorder: No - Musculoskeletal/Rheumatological Hx Falls: Yes - Gastrointestinal Hx Gastrointestinal Disorders: Yes Hx Gall Bladder Disease: Yes - Genitourinary/Gynecological Hx Genitourinary Disorders: No - Psychiatric Hx Psychophysiologic Disorder: Yes Hx Anxiety: Yes Hx Depression: Yes Hx Substance Use: No - Surgical History Hx Orthopedic Surgery: Yes (right hip replacement, right rotator cuff) Other/Comment: RIGHT SHOULDER SX, - Anesthesia Hx Anesthesia Reactions: No Hx Malignant Hyperthermia: No - Suicidal Assessment Feels Threatened In Home Enviroment: No Family/Social History - Physician Review Nursing Documentation Reviewed: Yes Family/Social History: No Known Family HX Smoking Status: Current Some Days Smoker Hx Alcohol Use: No Hx Substance Use: No Substance used: weed Hx Substance Use Treatment: No Allergies/Home Meds Allergies/Adverse Reactions: Allergies blueberry Allergy (Verified 07/09/16 16:23) URTICARIA shellfish derived Allergy (Verified 07/09/16 16:23) RASH Home Medications: Home Meds Medication Instructions Recorded Confirmed ALPRAZolam [Xanax] 1 mg PO TID 03/29/16 10/21/16 Pantoprazole Sodium [Protonix] 40 mg PO DAILY 05/14/16 10/21/16 Review of Systems - Physician Review All systems were reviewed & negative as marked: Yes - Review of Systems Constitutional: Normal. absent: Fatigue, Fevers Respiratory: Normal. absent: SOB, Cough, Sputum Cardiovascular: Normal. absent: Chest Pain, Palpitations Gastrointestinal: Abdominal Pain, Nausea, Vomiting. absent: Diarrhea Genitourinary Female: Normal. absent: Dysuria, Frequency Neurological: absent: Headache, Dizziness Physical Exam Vital Signs Reviewed: Yes Vital Signs Temp Pulse Resp BP Pulse Ox 10/21/16 05:41 98.4 F 61 16 113/73 100 10/21/16 02:36 99.4 F 77 16 153/97 H 100 10/21/16 00:48 71 16 164/95 H 100 Temperature: Afebrile Blood Pressure: Hypertensive Pulse: Regular Respiratory Rate: Normal Appearance: Positive for: Non-Toxic Pain Distress: None Mental Status: Positive for: Alert and Oriented X 3 - Systems Exam Head: Present: Atraumatic, Normocephalic Pupils: Present: PERRL Conjunctiva: Present: Normal Mouth: Present: Moist Mucous Membranes Respiratory/Chest: Present: Clear to Auscultation, Good Air Exchange. No: Respiratory Distress, Accessory Muscle Use Cardiovascular: Present: Regular Rate and Rhythm, Normal S1, S2. No: Murmurs Abdomen: Present: Tenderness, Normal Bowel Sounds. No: Distention, Peritoneal Signs, Rebound, Guarding, McBurney's Point Tender Upper Extremity: Present: Normal Inspection. No: Cyanosis, Edema Lower Extremity: Present: Normal Inspection. No: Edema Neurological: Present: GCS=15, CN II-XII Intact, Speech Normal, Motor Func Grossly Intact, Normal Sensory Function Skin: Present: Warm, Dry, Normal Color. No: Rashes Psychiatric: Present: Alert, Oriented x 3, Normal Insight, Normal Concentration Medical Decision Making ED Course and Treatment: 10/21/16 00:18 Impression:A 55 year old female who presents tot he emergency department complaining of abdominal pain with nausea and vomiting. Plan: --CT abdomen pelvis -- Labs -- Morphine -- Protonix -- IVF -- Urinalysis -- Reassess and disposition Progress Notes: 10/21/16 05:01 EXAM: CT Abdomen and Pelvis Without Intravenous Contrast FINDINGS: Lower thorax: No acute findings. ABDOMEN: Liver: Unremarkable. Gallbladder and bile ducts: Unremarkable. No calcified stones. No ductal dilation. Pancreas: Unremarkable. No ductal dilation. Spleen: Unremarkable. No splenomegaly. Adrenals: Unremarkable. No mass. Kidneys and ureters: Unremarkable. No obstructing stones. No hydronephrosis. Stomach and bowel: Mild mucosal thickening in portions of the colon may be due to its decompressed state or due to a mild colitis. No obstruction. Appendix: Normal appendix. PELVIS: Bladder: Unremarkable. No stones. Reproductive: Unremarkable as visualized. ABDOMEN and PELVIS: Intraperitoneal space: Unremarkable. No free air. No significant fluid collection. Bones/joints: Right total hip arthroplasty. No acute fracture. No dislocation. Soft tissues: Unremarkable. Vasculature: Atherosclerotic disease. No abdominal aortic aneurysm. Lymph nodes: Unremarkable. No enlarged lymph nodes. IMPRESSION: Mild mucosal thickening in portions of the colon may be due to its decompressed state or due to a mild colitis 10/21/16 06:03 Case discussed with who is aware and agrees with the plan to observe patient at [facility] for intractable abdominal pain and vomiting. Accepts patient under his service. - Lab Interpretations Lab Results: 10/21/16 00:20 10/21/16 00:20 Lab Results 10/21/16 03:40: Urine Color Straw, Urine Appearance Clear, Urine pH 7.5, Ur Specific [place] 1.020, Urine Protein Negative, Urine Glucose (UA) 100 H, Urine Ketones Negative, Urine Blood Trace-intact H, Urine Nitrate Negative, Urine Bilirubin Negative, Urine Urobilinogen 0.2, Ur Leukocyte Esterase Negative, Urine RBC 0 - 2, Urine WBC 0 - 2, Ur Epithelial Cells 0 - 2 10/21/16 00:20: WBC 8.4 D, RBC 4.71, Hgb 14.6, Hct 41.6, MCV 88.3, MCH 31.0, MCHC 35.1, RDW 12.5, Plt Count 248, MPV 9.2 10/21/16 00:20: Sodium 140, Potassium 4.5, Chloride 101, Carbon Dioxide 28, Anion Gap 16, BUN 13, Creatinine 0.8, Est GFR ( Amer) > 60, Est GFR (Non- Af Amer) > 60, Random Glucose 117 H, Calcium 10.2, Total Bilirubin 1.5 H, AST 72 H, ALT 21, Alkaline Phosphatase 81, Total Protein 7.9, Albumin 4.9 H, Globulin 3.0, Albumin/Globulin Ratio 1.6, Lipase 42 I have reviewed the lab results: Yes - RAD Interpretation Radiology Orders: 10/21/16 03:41 ABD & PELVIS W/O PO OR IV CONT [CT] Stat Transplant Immunologist: Radiologist - Medication Orders Current Medication Orders: Discontinued Medications Diphenhydramine HCl (Benadryl) 25 mg IVP ONCE ONE Stop: 10/21/16 01:20 Last Admin: 10/21/16 01:36 Dose: 25 mg Sodium Chloride (Sodium Chloride 0.9%) 1,000 mls @ 999 mls/hr IV .Q1H1M STA Stop: 10/21/16 01:12 Last Admin: 10/21/16 01:01 Dose: 999 mls/hr Metoclopramide HCl (Reglan) 10 mg IVP ONCE ONE Stop: 10/21/16 01:20 Last Admin: 10/21/16 01:37 Dose: 10 mg Morphine Sulfate (Morphine) 4 mg IVP STAT STA Stop: 10/21/16 00:13 Last Admin: 10/21/16 01:00 Dose: 4 mg Morphine Sulfate (Morphine) 4 mg IVP STAT STA Stop: 10/21/16 01:20 Last Admin: 10/21/16 01:36 Dose: 4 mg Morphine Sulfate (Morphine) 4 mg IVP STAT STA Stop: 10/21/16 03:40 Last Admin: 10/21/16 04:01 Dose: 4 mg Ondansetron HCl (Zofran Inj) 4 mg IVP ONCE ONE Stop: 10/21/16 00:13 Last Admin: 10/21/16 01:01 Dose: 4 mg Ondansetron HCl (Zofran Inj) 4 mg IVP ONCE ONE Stop: 10/21/16 03:41 Last Admin: 10/21/16 04:01 Dose: 4 mg Pantoprazole Sodium (Protonix Inj) 40 mg IVP ONCE STA Stop: 10/21/16 00:13 Last Admin: 10/21/16 01:01 Dose: 40 mg - Scribe Statement The provider has reviewed the documentation as recorded by the Stevan Gomez Provider Attestation: Provider Scribe Attestation: All medical record entries made by the Stevan were at my direction and personally dictated by me. I have reviewed the chart and agree that the record accurately reflects my personal performance of the history, physical exam, medical decision making, and the department course for this patient. I have also personally directed, reviewed, and agree with the discharge instructions and disposition. Disposition/Present on Arrival - Present on Arrival Any Indicators Present on Arrival: No History of DVT/PE: No History of Uncontrolled Diabetes: No Urinary Catheter: No History Surgical Site Infection Following: None - Disposition Have Diagnosis and Disposition been Completed?: Yes Diagnosis: Intractable abdominal pain, Intractable vomiting Disposition: HOSPITALIZED Disposition Time: 06:07 Condition: STABLE
[2016-10-21 00:33] LABS: HEMATOCRIT 41.6 % (36.0-48.0); MEAN CELL VOLUME 88.3 fL (80.0-105.0); MEAN CORPUSCULAR HGB CONC 35.1 g/dl (31.0-37.0); MEAN PLATELET VOLUME 9.2 fl (7.0-11.0); RED CELL DISTRIBUTION WIDTH 12.5 % (11.5-14.5); WHITE BLOOD COUNT 8.4 10^3/ul (4.5-11.0)
[2016-10-21 00:56] LABS: ALKALINE PHOSPHATASE 81 U/L (38-133); ALT/SGPT 21 U/L (7-56); AST/SGOT 72 U/L (15-39); BILIRUBIN,TOTAL 1.5 mg/dL (0.2-1.3); BLOOD UREA NITROGEN 13 mg/dL (7-21); CALCIUM 10.2 mg/dL (8.4-10.5); CARBON DIOXIDE 28 mmol/L (21-33); CHLORIDE 101 mmol/L (95-110); GFR AFRICAN-AMERICAN > 60; GLUCOSE,RANDOM 117 mg/dL (70-110); LIPASE 42 U/L (23-300); POTASSIUM 4.5 mmol/L (3.6-5.0); SODIUM 140 mmol/L (132-148); TOTAL PROTEIN 7.9 g/dL (5.8-8.3)
[2016-10-21 01:14] LABS: ALB/GLOB RATIO 1.6 (1.1-1.8)
[2016-10-21] MEDS ORDERED: DiphenhydrAMINE 50 mg/ml Inj IVP ONE (01:19)
[2016-10-21 04:14] LABS: PH,URINE 7.5 (4.7-8.0); URINE BILIRUBIN NEGATIVE (NEGATIVE); URINE BLOOD TRACE-INTACT (NEGATIVE); URINE GLUCOSE (UA) 100 mg/dL (NEGATIVE); URINE KETONE NEGATIVE (NEGATIVE); URINE LEUKOCYTE ESTERASE NEGATIVE Leu/uL (NEGATIVE); URINE PROTEIN NEGATIVE mg/dL (<30 mg/dL); URINE UROBILINOGEN 0.2 E.U./dL (<1 E.U./dL)
[2016-10-21 04:18] LABS: URINE APPEARANCE CLEAR (CLEAR); URINE COLOR STRAW (YELLOW)
[2016-10-21 04:24] LABS: URINE EPITHELIAL CELLS 0 - 2 /hpf (0-5); URINE RBC 0 - 2 /hpf (0-2); URINE WBC 0 - 2 /hpf (0-6)
--- NOTE | 2016-10-21 07:16 | CT ---
PROCEDURE: CT Abdomen and Pelvis without intravenous contrast HISTORY: pain COMPARISON: None. TECHNIQUE: Helical CT of the abdomen and pelvis was performed without oral or intravenous contrast as per referring physician request. Contrast Dose: None Radiation dose: Total exam DLP = 245 mGy-cm. This CT exam was performed using one or more of the following dose reduction techniques: Automated exposure control, adjustment of the mA and/or kV according to patient size, and/or use of iterative reconstruction technique. FINDINGS: LOWER THORAX: Unremarkable. LIVER: Unremarkable. No gross lesion or ductal dilatation. GALLBLADDER AND BILE DUCTS: Unremarkable. PANCREAS: Unremarkable. No gross lesion or ductal dilatation. SPLEEN: Unremarkable. ADRENALS: Unremarkable. No mass. KIDNEYS AND URETERS: No radiodense urolithiasis identified or obstructive uropathy bilaterally. There is no perinephric reaction. VASCULATURE: Unremarkable. No aortic aneurysm. BOWEL: Evaluation of bowel is compromised by the lack contrast agents. There is some questionable thickening of portions of the ascending colon though the colon is not fully distended. Clinically cord for potential segmental colitis. No pericolic reaction or ascites. APPENDIX: Unremarkable. Normal appendix. PERITONEUM: Unremarkable. No free fluid. No free air. LYMPH NODES: Unremarkable. No enlarged lymph nodes. BLADDER: Urinary bladder appears largely decompressed. No radiodense urolithiasis associated. REPRODUCTIVE: Unremarkable. BONES: Limited inferior lumbar spondylosis is noted. Prior right total hip replacement generates artifact limiting evaluation of the inferior pelvis. OTHER FINDINGS: None. IMPRESSION: 1. No radiodense urolithiasis, obstructive uropathy or perinephric reaction. 2. Questionable thickening of the proximal ascending colon may indicate limited segmental colitis. Clinically correlate further as this segment of bowel is not fully distended in the exam is limited by lack of contrast agents. 3. Prior right total hip replacement again evident. Concur with [place] rad preliminary interpretation by Dr. Darwin Thomas.
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
[2016-10-21] MEDS: Sodium Chloride 0.9% 1,000 ML IV SCH (18:17)
--- NOTE | 2016-10-21 23:29 | HP ---
SUBJECTIVE: A 55-year-old black female with history of GI disturbance in the past, history of cannabis-induced gastroparesis with nausea and vomiting and pain. The patient was admitted to the hospital with severe abdominal pain. Her recently lost his job. She was found to have cocaine and cannabis in her system. Her CT of the abdomen was negative. PHYSICAL EXAMINATION: ABDOMEN: Her abdomen was flat, hypoactive bowel sounds, diffusely tender in all quadrants without masses or organomegaly. CHEST: Clear to auscultation and percussion. HEART: Sinus rhythm. EXTREMITIES: Without cyanosis, clubbing or edema. NEUROLOGIC: Sensation grossly intact. LABORATORY DATA: White count was 8.4, hemoglobin was stable at 14.6, random blood sugar is 117, bilirubin was 1.5, AST was 72, elevated. Urinalysis was essentially negative. Tox screen was positive for benzodiazepines. HOME MEDICATIONS: The patient is on Xanax at home, cocaine which is a street drug and cannabis which is a street drug. PLAN: Plan is to hydrate, GI consultation, possible other imaging of the mesentery to rule out mesenteric ischemia. CT of the abdomen showed no obstruction. thickening of proximal ascending colon, possible segmental colitis, otherwise unremarkable. Right total hip replacement. Schedule for an MRA of the abdomen and to follow closely over the next 24 hours, also a psych consult. IMPRESSION: Returned intractable abdominal pain, possible cannabis induced, possible ischemia from cocaine. Donavan Adams MD
[2016-10-22] MEDS: Sodium Chloride 0.9% 1,000 ML IV SCH (04:30)
--- NOTE | 2016-10-22 06:26 | CP.PCM.PN ---
Subjective - Date & Time of Evaluation Date of Evaluation: 10/22/16 Time of Evaluation: 06:23 - Subjective Subjective: Patient was seen at bedside . She had complained of abdominal pain in LUQ region, 10/10 , no radiation, No nausea, no sweating , no palpitation. BP was 187/93 , repeat BP after 45 minutes was 171/91. Patient had received Morphine sulfate 4 mg IV x 3 in the ER. Urine drug screening had shown opiate, cocaine, benzo, cannabinoids. Patient is saying that she had used marijuana a few days back.Has PMH of anxiety, alcohol use, COPD, aseptic necrosis , She had used cocaine many years ago. Gives history of smoking. This 55 year old woman was admitted nausea, abdominal pain, cannabinoids induced gastroparesis. Has past medical history of heroine, cocaine, marijuana abuse. Objective - Vital Signs/Intake and Output Vital Signs (last 24 hours): Temp Pulse Resp BP Pulse Ox 98.9 F 66 18 117/64 98 10/21/16 16:00 10/21/16 16:00 10/21/16 16:00 10/21/16 16:00 10/21/16 16:00 Intake and Output: 10/21/16 10/22/16 18:59 06:59 Intake Total 2760 Balance 2760 - Medications Medications: Current Medications Sodium Chloride (Sodium Chloride 0.9%) 1,000 mls @ 100 mls/hr IV .Q10H [facility] Last Admin: 10/22/16 04:30 Dose: 100 mls/hr Metoclopramide HCl (Reglan) 10 mg IVP ACHS [facility] Last Admin: 10/21/16 21:28 Dose: 10 mg Mirtazapine (Remeron) 7.5 mg PO HS [facility] Last Admin: 10/21/16 21:27 Dose: 7.5 mg Pantoprazole Sodium (Protonix Inj) 40 mg IVP DAILY [facility] Last Admin: 10/21/16 11:05 Dose: 40 mg - Constitutional Appears: Well, No Acute Distress - Head Exam Head Exam: ATRAUMATIC, NORMAL INSPECTION, NORMOCEPHALIC - Eye Exam Eye Exam: Normal appearance - ENT Exam ENT Exam: Normal External Ear Exam - Neck Exam Neck Exam: Normal Inspection - Respiratory Exam Respiratory Exam: NORMAL BREATHING PATTERN - Cardiovascular Exam Cardiovascular Exam: absent: JVD - GI/Abdominal Exam GI & Abdominal Exam: absent: Distended - Rectal Exam Rectal Exam: Deferred - Exam Additional comments: Deferred. - Extremities Exam Extremities Exam: Normal Inspection - Back Exam Back Exam: NORMAL INSPECTION - Neurological Exam Neurological Exam: Alert, Oriented x3 - Psychiatric Exam Psychiatric exam: Normal Affect, Normal Mood - Skin Skin Exam: Normal Color Assessment and Plan - Assessment and Plan (Free Text) Assessment: LUQ abdominal pain. Elevated blood pressure reading. R/O myocardial infarction( Use of cocaine.) Marijuana abuse history. Heroine abuse history. History aseptic necrosis of right femur. COPD Plan: EKG stat.-----------------> Flipped T waves in V2 through V 6. Troponin serial. 0.01,0.01. Toradol 30 mg IV stat. Clonidine 0.1 mg PO stat. May need cardiology consultation. As per PMD.
[2016-10-22 06:44] VITALS: RESP 16; TEMP 98.7; O2SAT 100
[2016-10-22 06:45] VITALS: BP 171/91; PULSE 68
--- NOTE | 2016-10-22 09:37 | CON ---
DATE: 10/21/2016 REASON FOR CONSULTATION: I have been asked to see this 55-year-old female with a history of multiple drug use including opiates, cocaine and marijuana, who comes to the hospital with recurrent abdominal pain and vomiting. The patient states that the abdominal pain started on the morning of admission to the hospital. She denies any hematemesis or melena. This is the patient's fourth hospitalization in the last 7 months for abdominal pain and vomiting. She has had multiple negative CAT scans of the abdomen and pelvis. She had an endoscopy in July of 2016, which showed gastritis and the hiatal hernia. The patient had been doing well up until the day before admission. Her urine tox screen is positive for opiates, cocaine, marijuana and benzodiazepines. Despite the positive cocaine in the urine she denies cocaine use. She denies any fevers or chills. CT scan of the abdomen and pelvis performed in the emergency room revealed some minimal nonspecific questionable thickening of the ascending colon, most likely secondary to under distention and lack of contrast. The patient currently feels somewhat better with less abdominal pain at this time. She is taking ice chips without any vomiting. PAST MEDICAL HISTORY: Notable for chronic recurrent abdominal pain, nausea, and vomiting, which has been attributed to her illicit drug use, history of gastritis, anxiety, depression, degenerative joint disease. PAST SURGICAL HISTORY: Notable for right rotator cup surgery for which she takes morphine for chronic shoulder pain as well as right hip replacement. SOCIAL HISTORY: She denies alcohol use or cigarette smoking, but does admit to daily marijuana use. FAMILY HISTORY: Noncontributory. REVIEW OF SYSTEMS: A 14-point review of systems is notable for nausea, vomiting, and abdominal pain. PHYSICAL EXAMINATION GENERAL: Well-developed female, lying in bed awake, in no acute distress. VITAL SIGNS: Reveal temperature of 98.4, blood pressure of 111/63, heart rate of 61. HEENT: Reveal sclerae to be white. Conjunctivae pink. Oral mucosa moist. NECK: Supple. CHEST: Reveal lungs to be clear. HEART: Reveals regular rate and rhythm. ABDOMEN: Soft, mild periumbilical tenderness. No rebound, no guarding. EXTREMITIES: Show no edema. LABORATORY DATA: Reveal white blood cell count 8.4, hemoglobin 14.6. Chemistries reveal normal electrolytes, AST 72, total bilirubin is 1.5, alkaline phosphatase is 81. IMPRESSION: A 55-year-old female with chronic abdominal pain, polysubstance abuse, vomiting with a negative CAT scan. She had an endoscopy about 2 months ago which revealed gastritis and hiatal hernia. RECOMMENDATIONS: 1. IV Protonix for gastritis. 2. Reglan 10 mg IV, a.c. and at bedtime. 3. I will start the patient on clear liquid diet. 4. Agree with psychiatric evaluation for her polysubstance abuse. Darwin Vázquez MD
--- NOTE | 2016-10-22 11:23 | PN ---
DATE: 10/22/2016 SUBJECTIVE: The patient is lying in bed with her head covered by the sheets. She states that she feels better with less abdominal pain and vomiting. She does continue to have some nausea. She tolerated clear liquids. PHYSICAL EXAMINATION VITAL SIGNS: Reveal temperature of 98.7, blood pressure 171/91, heart rate is 68. ABDOMEN: Soft, nontender, no guarding. LABORATORY DATA: No new laboratory data available. IMPRESSION: A 55-year-old female with chronic recurrent abdominal pain, nausea, and vomiting with polysubstance drug use including marijuana, cocaine, and opiates. I suspect that her symptoms are largely secondary to her drug use. RECOMMENDATIONS: 1. Advance diet. 2. Continue PPI. 3. The patient can be discharged home with outpatient followup. 4. Diet as tolerated. Darwin Vázquez MD
--- NOTE | 2016-10-22 12:31 | PN ---
DATE: SUBJECTIVE: The patient is a 55-year-old white female admitted to the hospital with intractable abdominal pain, was found to be positive for cocaine and cannabis, has a chronic history of severe abdominal pain with cholestasis associated with use of these medications. The patient was instructed to stay off of it. She was seen in consultation with Dr. Vázquez and also by Dr. Costello for psychiatry. The patient will be discharged home in improved condition today. PHYSICAL EXAMINATION: ABDOMEN: Soft. Bowel sounds are normoactive. LABORATORY DATA: CAT scan is negative. ASSESSMENT AND PLAN: The patient will be discharged home in improved condition to an outpatient program designed to keep the patient drug free. The patient will follow up as an outpatient. We will continue on Protonix and patient was offered to start on Remeron for her mood symptoms as well as profile. The patient will decide on as an outpatient for this medication. Final discharge diagnoses would be intractable abdominal pain, cocaine and cannabis abuse. Donavan Adams MD
--- NOTE | 2016-10-22 16:09 | CP.PCM.PCO ---
Physician Communication Note - Physician Communication Note Physician Communication Note: pt was d/c before this freelance writer round
--- NOTE | 2016-10-22 16:34 | CARD ---
APPROVED REPORT EKG Measurement Heart [id number] ID [id number] <Conclusion> Sinus rhythm with premature atrial complexes with aberrant conduction Left axis deviation Septal infarct, age undetermined Prolonged QTc
--- NOTE | 2016-10-23 07:29 | DS ---
SUMMARY: A 55-year-old black female admitted to the hospital with intractable abdominal pain, cannabis and cocaine abuse. The patient was taken off medication, was seen in consultation by Dr. Vázquez and also by Dr. Costello for Psychiatry. The patient refused inpatient admission. She will be discharged home in improved condition. Abdomen resolved. CT was negative. The patient will be followed as an outpatient, continue on Protonix, possible Remeron as an outpatient, and Xanax. FINAL DISCHARGE DIAGNOSES: Intractable abdominal pain, cannabis and cocaine abuse, anxiety disorder. Donavan Adams MD
== END 2016-10-22 10:59 | disposition home or self-care (01) ==
LOC: ED 23:47 → ERH 10-21 06:01 → 3RNO 10-21 07:06
PROVIDERS: ADMIT Internal Medicine; ATTEND Internal Medicine
DX: R10.12 Left upper quadrant pain (principal); G89.29 Other chronic pain; F14.10 Cocaine abuse, uncomplicated; F12.10 Cannabis abuse, uncomplicated; F41.9 Anxiety disorder, unspecified; F32.9 Major depressive disorder, single episode, unspecified; K44.9 Diaphragmatic hernia without obstruction or gangrene; K29.70 Gastritis, unspecified, without bleeding; M19.90 Unspecified osteoarthritis, unspecified site; J44.9 Chronic obstructive pulmonary disease, unspecified; R03.0 Elevated blood-pressure reading, without diagnosis of hypertension; Z91.5 Personal history of self-harm; Z96.641 Presence of right artificial hip joint; Z87.891 Personal history of nicotine dependence
CPT/HCPCS: 36415; 74176; 80053; 81001; 83690; 84484; 85027; 93005; 96374; 99285; C9113; G0378; G0480; J1200; J1885; J2270; J2405; J2765; J7040

== ENCOUNTER 2016-11-18 06:57 | Emergency (ER) | payer MEDICAID, OTHER ==
[2016-11-18 07:15] VITALS: BMI 19.3
[2016-11-18 07:27] VITALS: RESP 18; TEMP 97.5; O2SAT 100
[2016-11-18] MEDS ORDERED: Sodium Chloride 0.9% 1,000 ML IV STA (07:28)
[2016-11-18] MEDS ORDERED: Morphine 4 mg/ml ISec IM STA (07:29)
[2016-11-18 08:04] LABS: BASO # 0.01 K/mm3 (0.0-2.0); BASO % 0.1 % (0.0-3.0); GRAN # 7.5 (1.4-6.5); GRAN % 88.6 % (50.0-68.0); HEMATOCRIT 41.1 % (36.0-48.0); LYMPH # 0.7 (1.2-3.4); LYMPH % 8.5 % (22.0-35.0); MEAN CELL VOLUME 88.2 fl (80.0-105.0); MEAN CORPUSCULAR HEMOGLOBIN 30.5 pg (25.0-35.0); MEAN CORPUSCULAR HGB CONC 34.5 g/dl (31.0-37.0); MEAN PLATELET VOLUME 8.7 fl (7.0-11.0); MONO # 0.2 (0.1-0.6); MONO % 2.8 % (1.0-6.0); RED CELL DISTRIBUTION WIDTH 13.6 % (11.5-14.5); WHITE BLOOD COUNT 8.5 10^3/ul (4.5-11.0)
--- NOTE | 2016-11-18 08:06 | ED PDOC ---
Arrival/HPI - General Chief Complaint: Abdominal Pain Time Seen by Provider: 11/18/16 07:20 Historian: Spouse - History of Present Illness Narrative History of Present Illness (Text): 11/18/16 07:22 A 56 year old female, whose past medical history includes recurrent abdominal pain, anxiety and depression, was brought in by her and presents to the emergency department complaining of abdominal pain and vomiting since 22:00 last night. Patient's reports patient had similar symptoms before and has been recurrent. According to , last time she was in this state was 1 1/2 month ago, prior to that 3 months ago, and prior 4 months ago. Time/Duration: Other (22:00) Symptom Onset: Sudden Symptom Course: Unchanged Context: Home Past Medical History - Provider Review Nursing Documentation Reviewed: Yes - Infectious Disease Hx of Infectious Diseases: None - Tetanus Immunization Tetanus Immunization: Unknown - Past Medical History Past Medical History: No Previous - Cardiac Hx Cardiac Disorders: No - Pulmonary Hx Respiratory Disorders: Yes (SMOKES CIGARETTES 3 /DAY) - Neurological Hx Neurological Disorder: No - HEENT Hx HEENT Disorder: No - Renal Hx Renal Disorder: No - Endocrine/Metabolic Hx Endocrine Disorders: No - Hematological/Oncological Hx Blood Disorders: No - Integumentary Hx Dermatological Disorder: No - Musculoskeletal/Rheumatological Hx Falls: Yes - Gastrointestinal Hx Gastrointestinal Disorders: Yes Hx Gall Bladder Disease: Yes - Genitourinary/Gynecological Hx Genitourinary Disorders: No - Psychiatric Hx Psychophysiologic Disorder: Yes Hx Anxiety: Yes Hx Depression: Yes Hx Substance Use: No - Surgical History Hx Orthopedic Surgery: Yes (right hip replacement, right rotator cuff) Other/Comment: RIGHT SHOULDER SX, - Anesthesia Hx Anesthesia Reactions: No Hx Malignant Hyperthermia: No - Suicidal Assessment Feels Threatened In Home Enviroment: No Family/Social History - Physician Review Nursing Documentation Reviewed: Yes Family/Social History: No Known Family HX Smoking Status: Light Smoker < 10 Cigarettes Daily Hx Alcohol Use: No Hx Substance Use: No Substance used: weed Hx Substance Use Treatment: No Allergies/Home Meds Allergies/Adverse Reactions: Allergies blueberry Allergy (Verified 07/09/16 16:23) URTICARIA shellfish derived Allergy (Verified 07/09/16 16:23) RASH Review of Systems - Physician Review All systems were reviewed & negative as marked: Yes - Review of Systems Constitutional: absent: Fevers Respiratory: absent: SOB Cardiovascular: absent: Chest Pain Gastrointestinal: Abdominal Pain, Vomiting Physical Exam Vital Signs Reviewed: Yes Vital Signs Temp Pulse Resp BP Pulse Ox 11/18/16 11:23 67 18 124/65 100 11/18/16 07:10 97.5 F L 69 18 126/66 100 Temperature: Afebrile Blood Pressure: Normal Pulse: Regular Respiratory Rate: Normal Appearance: Positive for: Uncomfortable Pain Distress: Severe Mental Status: Positive for: Alert and Oriented X 3 - Systems Exam Head: Present: Atraumatic, Normocephalic Pupils: Present: PERRL Extroacular Muscles: Present: EOMI Conjunctiva: Present: Normal Mouth: Present: Moist Mucous Membranes Neck: Present: Normal Range of Motion Respiratory/Chest: Present: Clear to Auscultation, Good Air Exchange. No: Respiratory Distress, Accessory Muscle Use Cardiovascular: Present: Regular Rate and Rhythm, Normal S1, S2. No: Murmurs Abdomen: Present: Tenderness (epigastric), Guarding. No: Rebound Back: Present: Normal Inspection Upper Extremity: Present: Normal Inspection. No: Cyanosis, Edema Lower Extremity: Present: Normal Inspection. No: Edema Neurological: Present: GCS=15, CN II-XII Intact, Speech Normal Skin: Present: Warm, Dry, Normal Color. No: Rashes Psychiatric: Present: Alert, Oriented x 3, Normal Insight, Normal Concentration Medical Decision Making ED Course and Treatment: 11/18/16 08:30 Impression: 56 year old female with abdominal pain and vomiting. Physical exam shows epigastric tenderness with guarding and no rebound. Differential Diagnosis included but are not limited to: Acute on chronic abdomen Plan: -- Abd X-Ray -- Labs -- Morphine -- Pepcid -- Zofran -- IV Fluids -- Urinalysis -- Reassess and disposition Prior Visits: Notes and results from previous visits were reviewed. Patient was last seen in the emergency department on 10/21/2016 for diffuse abdominal pain associated with nausea and vomiting. Patient was admitted. Progress Notes: 11/18/16 12:36 10:40 Patient was reassessed multiple times in the ED after Morphine then Dilaudid x 2 doses. Exam improved. No longer having abdominal pain. Abdomen is soft and not tender. She is tolerating PO fluids in the ED. She appears well hydrated. Patient did not want a CT or an Xray because they have had too many for these same symptoms and they never find anything. They have seen Dr. Vázquez before as an outpatient for GI. I offerred patient admission but she does not want to stay. She will follow up with her doctor and Dr. Vázquez. She states that usually 3 doses of pain medication does the trick and her pain subsides. RN noted some manipulative behavior. There is some concern for opiate dependence. - Lab Interpretations Lab Results: 11/18/16 07:50 11/18/16 07:50 Lab Results 11/18/16 11:20: Urine Color Yellow, Urine Appearance Clear, Urine pH >=9.0, Ur Specific [place] 1.015, Urine Protein 30 H, Urine Glucose (UA) Negative, Urine Ketones 15 H, Urine Blood Negative, Urine Nitrate Negative, Urine Bilirubin Negative, Urine Urobilinogen 0.2, Ur Leukocyte Esterase Negative, Urine RBC 0 - 2, Urine WBC 0 - 2 11/18/16 07:50: Sodium 143, Potassium 3.5 L, Chloride 103, Carbon Dioxide 23, Anion Gap 21 H, BUN 9, Creatinine 0.7, Est GFR ( Amer) > 60, Est GFR (Non -Af Amer) > 60, Random Glucose 149 H, Calcium 10.3, Total Bilirubin 1.2, AST 78 H, ALT 24, Alkaline Phosphatase 98, Total Protein 8.2, Albumin 5.2 H, Globulin 3.0, Albumin/Globulin Ratio 1.7, Lipase 53 11/18/16 07:50: PT 11.2, INR 1.04, APTT 25.0 11/18/16 07:50: WBC 8.5, RBC 4.66, Hgb 14.2, Hct 41.1, MCV 88.2, MCH 30.5, MCHC 34.5, RDW 13.6, Plt Count 260, MPV 8.7, Gran % 88.6 H, Lymph % (Auto) 8.5 L, [place] % (Auto) 2.8, Eos % (Auto) 0.0 L, Baso % (Auto) 0.1, Gran # 7.50 H, Lymph # 0.7 L, [place] # 0.2, Eos # 0.0, Baso # 0.01 I have reviewed the lab results: Yes - RAD Interpretation Radiology Orders: 11/18/16 07:31 ABD 2 VIEWS (FLAT/UP OR DECUB) [RAD] Stat - Medication Orders Current Medication Orders: Discontinued Medications Famotidine (Pepcid) 20 mg IVP STAT STA Stop: 11/18/16 07:29 Last Admin: 11/18/16 07:54 Dose: 20 mg Hydromorphone HCl (Dilaudid) 1 mg IVP STAT STA Stop: 11/18/16 08:54 Last Admin: 11/18/16 09:03 Dose: 1 mg Hydromorphone HCl (Dilaudid) 1 mg IVP STAT STA Stop: 11/18/16 10:48 Last Admin: 11/18/16 10:56 Dose: 1 mg Sodium Chloride (Sodium Chloride 0.9%) 1,000 mls @ 100 mls/hr IV .Q10H STA Stop: 11/18/16 17:27 Last Admin: 11/18/16 07:54 Dose: 100 mls/hr Morphine Sulfate (Morphine) 4 mg IM STAT STA Stop: 11/18/16 07:30 Last Admin: 11/18/16 07:40 Dose: 4 mg Ondansetron HCl (Zofran Inj) 4 mg IM STAT STA Stop: 11/18/16 07:30 Last Admin: 11/18/16 07:38 Dose: 4 mg Ondansetron HCl (Zofran Inj) 4 mg IVP STAT STA Stop: 11/18/16 08:54 Last Admin: 11/18/16 09:03 Dose: 4 mg Potassium Chloride (K-Dur 20 Meq Er Tab) 40 meq PO STAT STA Stop: 11/18/16 08:17 Last Admin: 11/18/16 10:56 Dose: 40 meq - Scribe Statement The provider has reviewed the documentation as recorded by the Stevan Worthington Provider Scribe Attestation: All medical record entries made by the Stevan were at my direction and personally dictated by me. I have reviewed the chart and agree that the record accurately reflects my personal performance of the history, physical exam, medical decision making, and the department course for this patient. I have also personally directed, reviewed, and agree with the discharge instructions and disposition. Disposition/Present on Arrival - Present on Arrival Any Indicators Present on Arrival: No History of DVT/PE: No History of Uncontrolled Diabetes: No Urinary Catheter: No History of Decub. Ulcer: No History Surgical Site Infection Following: None - Disposition Have Diagnosis and Disposition been Completed?: Yes Diagnosis: Abdominal pain Disposition: HOME/ ROUTINE Disposition Time: 11:40 Patient Plan: Discharge Condition: IMPROVED Discharge Instructions (ExitCare): Acute Abdominal Pain (ED) Additional Instructions: Ms Rahman, thank you for letting us take care of you today. Your provider was Dr. No. You were treated for Abdominal Pain. The emergency medical care you received today was directed at your acute symptoms. If you were prescribed any medication, please fill it and take as directed. It may take several days for your symptoms to resolve. Return to the Emergency Department if your symptoms worsen, do not improve, or if you have any other problems. Please contact your doctor or call one of the physicians/clinics you have been referred to that are listed on the Patient Visit Information form that is included in your discharge packet. Bring any paperwork you were given at discharge with you along with any medications you are taking to your follow up visit. Our treatment cannot replace ongoing medical care by a primary care provider (PCP) outside of the emergency department. Thank you for allowing the [facility] team to be part of your care today. If you had an X-Ray or CT scan: A Radiologist will review the ED reading if any change in treatment is needed we will contact you. If you had a blood, urine, or wound culture: It will take several days for the results, if any change in treatment is needed we will contact you. If you had an STI test: It will take 48 hours for the results. Please call after 1 week if you have not heard back. Prescriptions: Ondansetron ODT [Zofran ODT] 4 mg PO Q6 #14 odt Ranitidine HCl [Zantac] 150 mg PO BID PRN #30 tablet PRN Reason: Pain, Mild (1-3) Referrals: Donavan Adams MD [Staff Provider] - Follow up with primary Darwin Vázquez MD [Staff Provider] - Follow up with primary Forms: [employer] ([place]yan), WORK NOTE
[2016-11-18 08:10] LABS: BLOOD UREA NITROGEN 9 mg/dL (7-21); CALCIUM 10.3 mg/dL (8.4-10.5); CARBON DIOXIDE 23 mmol/L (21-33); CHLORIDE 103 mmol/L (98-107); GFR AFRICAN-AMERICAN > 60; GLUCOSE,RANDOM 149 mg/dL (70-110); INR 1.04 (0.93-1.08); POTASSIUM 3.5 mmol/L (3.6-5.0); SODIUM 143 mmol/L (132-148); TOTAL PROTEIN 8.2 g/dL (5.8-8.3)
[2016-11-18 08:11] LABS: ALB/GLOB RATIO 1.7 (1.1-1.8); ALKALINE PHOSPHATASE 98 U/L (38-133); ALT/SGPT 24 U/L (7-56); AST/SGOT 78 U/L (15-39); BILIRUBIN,TOTAL 1.2 mg/dL (0.2-1.3); LIPASE 53 U/L (23-300)
[2016-11-18] MEDS ORDERED: Potassium Chloride 20 mEq ER Tab PO STA (08:16)
[2016-11-18] MEDS ORDERED: HYDROmorphone 1 mg/ml ISec IVP STA ×2 (08:53→10:47)
[2016-11-18 11:23] VITALS: BP 124/65; PULSE 67
[2016-11-18 11:30] LABS: PH,URINE >=9.0 (4.7-8.0); URINE BILIRUBIN NEGATIVE (NEGATIVE); URINE BLOOD NEGATIVE (NEGATIVE); URINE GLUCOSE (UA) NEGATIVE (NEGATIVE); URINE KETONE 15 mg/dL (NEGATIVE); URINE LEUKOCYTE ESTERASE NEGATIVE Leu/uL (NEGATIVE); URINE PROTEIN 30 mg/dL (<30 mg/dL); URINE UROBILINOGEN 0.2 E.U./dL (<1 E.U./dL)
[2016-11-18 11:35] LABS: URINE APPEARANCE CLEAR (CLEAR); URINE COLOR YELLOW (YELLOW)
[2016-11-18 11:48] LABS: URINE RBC 0 - 2 /hpf (0-2); URINE WBC 0 - 2 /hpf (0-6)
--- NOTE | 2016-11-18 12:42 | RAD ---
HISTORY: abd pain r/o obstruction COMPARISON: No prior. FINDINGS: BOWEL: Normal. No obstruction. No free air. Mild constipation BONES: Normal. OTHER FINDINGS: None. IMPRESSION: No active disease.
== END 2016-11-18 11:40 | disposition home or self-care (01) ==
LOC: ED 06:57
DX: R10.9 Unspecified abdominal pain (principal)
CPT/HCPCS: 74020; 80053; 81001; 83690; 85025; 85610; 85730; 96372; 96374; 96375; 96376; 99284; J1170; J2270; J2405; J7040

== ENCOUNTER 2016-12-09 04:24 | Observation (INO) | payer MEDICAID, OTHER ==
[2016-12-09] MEDS ORDERED: Sodium Chloride 0.9% 1,000 ML IV ONE (06:00)
[2016-12-09] MEDS ORDERED: HYDROmorphone 2 mg/ml ISec IVP ONE (06:00)
--- NOTE | 2016-12-09 06:30 | ED PDOC ---
Arrival/HPI - General Historian: Patient - History of Present Illness Time/Duration: 1-3 hours Symptom Onset: Sudden Symptom Course: Unchanged Activities at Onset: Rest Context: Home <Darwin Mendes - Last Filed: 12/09/16 07:21> <Jose No - Last Filed: 12/09/16 11:08> - General Time Seen by Provider: 12/09/16 06:16 - History of Present Illness Narrative History of Present Illness (Text): 12/09/16 06:29 A 56 year old female, whose past medical history includes gastritis, presents to the emergency department complaining of abdominal pain, nausea and vomiting two hours prior to arrival. Patient denies any dysuria, headache, shortness of breath or any other complaints at this time. PMD: Dr. Adams (Darwin Mendes) Past Medical History - Provider Review Nursing Documentation Reviewed: Yes - Infectious Disease Hx of Infectious Diseases: None - Tetanus Immunization Tetanus Immunization: Unknown - Past Medical History Past Medical History: No Previous - Cardiac Hx Cardiac Disorders: No - Pulmonary Hx Respiratory Disorders: Yes (SMOKES CIGARETTES 3 /DAY) - Neurological Hx Neurological Disorder: No - HEENT Hx HEENT Disorder: No - Renal Hx Renal Disorder: No - Endocrine/Metabolic Hx Endocrine Disorders: No - Hematological/Oncological Hx Blood Disorders: No - Integumentary Hx Dermatological Disorder: No - Musculoskeletal/Rheumatological Hx Falls: Yes - Gastrointestinal Hx Gastrointestinal Disorders: Yes Hx Gall Bladder Disease: Yes - Genitourinary/Gynecological Hx Genitourinary Disorders: No - Psychiatric Hx Psychophysiologic Disorder: Yes Hx Anxiety: Yes Hx Depression: Yes Hx Substance Use: No - Surgical History Hx Orthopedic Surgery: Yes (right hip replacement, right rotator cuff) Other/Comment: RIGHT SHOULDER SX, - Anesthesia Hx Anesthesia Reactions: No Hx Malignant Hyperthermia: No - Suicidal Assessment Feels Threatened In Home Enviroment: No <Darwin Mendes - Last Filed: 12/09/16 07:21> Family/Social History - Physician Review Nursing Documentation Reviewed: Yes Family/Social History: No Known Family HX Smoking Status: Light Smoker < 10 Cigarettes Daily Hx Alcohol Use: No Hx Substance Use: No Substance used: weed Hx Substance Use Treatment: No <Darwin Mendes - Last Filed: 12/09/16 07:21> Allergies/Home Meds <Darwin Mendes - Last Filed: 12/09/16 07:21> <MarybelJose Eileen - Last Filed: 12/09/16 11:08> Allergies/Adverse Reactions: Allergies blueberry Allergy (Verified 07/09/16 16:23) URTICARIA shellfish derived Allergy (Verified 07/09/16 16:23) RASH Review of Systems - Physician Review All systems were reviewed & negative as marked: Yes - Review of Systems Respiratory: absent: SOB Gastrointestinal: Abdominal Pain, Nausea, Vomiting Genitourinary Female: absent: Dysuria Neurological: absent: Headache <Darwin Mendes - Last Filed: 12/09/16 07:21> Physical Exam Vital Signs Reviewed: Yes Appearance: Positive for: Well-Appearing, Non-Toxic, Comfortable Pain Distress: None Mental Status: Positive for: Alert and Oriented X 3 - Systems Exam Head: Present: Atraumatic, Normocephalic Pupils: Present: PERRL Extroacular Muscles: Present: EOMI Conjunctiva: Present: Normal Mouth: Present: Moist Mucous Membranes Neck: Present: Normal Range of Motion Respiratory/Chest: Present: Clear to Auscultation, Good Air Exchange. No: Respiratory Distress, Accessory Muscle Use Cardiovascular: Present: Regular Rate and Rhythm, Normal S1, S2. No: Murmurs Abdomen: Present: Normal Bowel Sounds. No: Tenderness, Distention, Peritoneal Signs Back: Present: Normal Inspection Upper Extremity: Present: Normal Inspection. No: Cyanosis, Edema Lower Extremity: Present: Normal Inspection. No: Edema Neurological: Present: GCS=15, CN II-XII Intact, Speech Normal Skin: Present: Warm, Dry, Normal Color. No: Rashes Psychiatric: Present: Alert, Oriented x 3, Normal Insight, Normal Concentration <Darwin Mendes - Last Filed: 12/09/16 07:21> Vital Signs Temp Pulse Resp BP Pulse Ox 12/09/16 09:40 98.4 F 60 18 124/76 99 12/09/16 08:00 98 F 76 16 118/50 L 99 12/09/16 07:03 80 18 116/75 98 Medical Decision Making - Transfer of Care Patient signed out to Dr:: marybel ct and dispo <Darwin Mendes - Last Filed: 12/09/16 07:21> ED Course and Treatment: 12/09/16 06:28 Impression: A 56 year old female with abdominal pain, nausea and vomiting. Plan: -- IV fluids -- antiemetic -- Dilaudid, Reglan, Zofran -- Reassess and disposition Prior Visits: Notes and results from previous visits were reviewed. Patient last reported to the emergency department on 11/18/16 for evaluation of abdominal pain and vomiting. Progress Notes: (Darwin Mendes) - Medication Orders Current Medication Orders: Discontinued Medications Hydromorphone HCl (Dilaudid) 1 mg IVP STAT STA Stop: 12/09/16 06:33 Last Admin: 12/09/16 07:00 Dose: 1 mg MAR Pain Assessment Document 12/09/16 07:00 JESUS (Rec: 12/09/16 07:00 JESUS [id number]) Pain Reassessment Is this a pain reassessment? Yes Presence of Pain Presence of Pain Yes Location Pain Location Body Site Abdomen IVP Administration Document 12/09/16 07:00 JESUS (Rec: 12/09/16 07:00 JESUS [id number]) Charges for Administration # of IVP Administrations 1 Hydromorphone HCl (Dilaudid) 2 mg IVP ONCE ONE Stop: 12/09/16 06:01 Sodium Chloride (Sodium Chloride 0.9%) 1,000 mls @ 1,000 mls/hr IV .Q1H ONE Stop: 12/09/16 06:59 Iohexol (Omnipaque 350 100 Ml) Confirm Administered Dose 350 mg .ROUTE .STK-MED ONE Stop: 12/09/16 08:57 Metoclopramide HCl (Reglan) 10 mg IVP ONCE ONE Stop: 12/09/16 06:33 Last Admin: 12/09/16 07:00 Dose: 10 mg IVP Administration Document 12/09/16 07:00 JESUS (Rec: 12/09/16 07:00 JESUS [id number]) Charges for Administration # of IVP Administrations 1 Ondansetron HCl (Zofran Inj) 4 mg IVP ONCE ONE Stop: 12/09/16 06:01 Pantoprazole Sodium (Protonix Inj) 40 mg IVP ONCE ONE Stop: 12/09/16 06:01 ED OBSERVATION <Darwin Mendes - Last Filed: 12/09/16 07:21> Date of observation admission: 12/09/16 Time of observation admission: 06:30 <Jose No - Last Filed: 12/09/16 11:08> - Observation admission statement Patient is being placed in observation because:: Abdominal pain (Jose No) - Goals of Observation Goals of observation are:: Monitor and treat symptoms (Jose No) - Progress Note Progress Note: 12/09/16 06:30 Patient endorsed to me by Dr. Mendes, pending CT results. Labs reviewed, which showed: Glucose of 106, Urea nitrogen of 10, Creatinine of 0.9, Sodium of 143, Potassium of 3.9, Chloride of 104, Enzymatic CO2 of 27, Alkaline phosphatase of 81, AST of 63, ALT of 63, Total bilirubin of 0.8, Lipase of 143, WBC of 13.76, HbG of 14.1, HCT of 41.6, PLT of 240. 12/09/16 09:00 Patient resting comfortably, in no acute distress. Report Date : 12/09/2016 10:25:19 PROCEDURE: CT Abdomen and Pelvis with contrast Dictator : Subha Davila MD IMPRESSION: No acute abdominal or pelvic abnormality. 12/09/16 11:06 On re-evaluation, patient feels better and is in no acute distress. Patient is tolerating PO intake. On exam, abdomen non-tender. I have discussed the results and plan with the patient, who expresses understanding. Patient in agreement with plan to be discharged home. Patient is stable for discharge. Patient was instructed to follow up with PMD Dr. Adams for pain management or return if symptoms worsen or new concerning symptoms arise. (Jose No) - Scribe Statement The provider has reviewed the documentation as recorded by the Scribe <Darwin Mendes - Last Filed: 12/09/16 07:21> <MarybelJose L - Last Filed: 12/09/16 11:08> - Scribe Statement Melinda Tripathi Provider Scribe Attestation: All medical record entries made by the Scribe were at my direction and personally dictated by me. I have reviewed the chart and agree that the record accurately reflects my personal performance of the history, physical exam, medical decision making, and the department course for this patient. I have also personally directed, reviewed, and agree with the discharge instructions and disposition. (Darwin Mendes) Disposition/Present on Arrival - Present on Arrival Any Indicators Present on Arrival: No History of DVT/PE: No History of Uncontrolled Diabetes: No Urinary Catheter: No History Surgical Site Infection Following: None - Disposition Have Diagnosis and Disposition been Completed?: Yes Disposition Time: 07:15 <Darwin Mendes - Last Filed: 12/09/16 07:21> - Disposition Disposition Time: 06:30 <Jose No - Last Filed: 12/09/16 11:08> - Disposition Diagnosis: Intractable abdominal pain, Intractable vomiting Patient Problems: Current Active Problems Problem Status Onset Intractable abdominal pain Acute Intractable vomiting Acute Condition: FAIR
[2016-12-09 06:32] VITALS: BMI 18.2
[2016-12-09] MEDS ORDERED: HYDROmorphone 1 mg/ml ISec IVP STA (06:32)
[2016-12-09 08:55] LABS: ALB/GLOB RATIO 1.7 (1.1-1.8); ALKALINE PHOSPHATASE 81 U/L (38-126); ALT/SGPT 22 U/L (7-56); AST/SGOT 63 U/L (14-36); BILIRUBIN,TOTAL 0.8 mg/dL (0.2-1.3); BLOOD UREA NITROGEN 10 mg/dL (7-21); CALCIUM 9.7 mg/dL (8.4-10.5); CARBON DIOXIDE 27 mmol/L (21-33); CHLORIDE 104 mmol/L (98-107); GFR AFRICAN-AMERICAN > 60; GLUCOSE,RANDOM 106 mg/dL (70-110); HEMATOCRIT 41.6 % (36.0-48.0); LIPASE 143 U/L (23-300); MEAN CELL VOLUME 92.2 fl (80.0-105.0); MEAN CORPUSCULAR HEMOGLOBIN 31.3 pg (25.0-35.0); MEAN CORPUSCULAR HGB CONC 33.9 g/dl (31.0-37.0); POTASSIUM 3.9 mmol/L (3.6-5.0); SODIUM 143 mmol/L (132-148); TOTAL PROTEIN 7.6 g/dL (5.8-8.3); WHITE BLOOD COUNT 13.8 10^3/ul (4.5-11.0)
[2016-12-09 08:56] LABS: BASO % 0.1 % (0.0-3.0); EOS % 1.2 % (1.5-5.0); GRAN # 11.63 (1.4-6.5); LYMPH # 1.5 (1.2-3.4); MEAN PLATELET VOLUME 8.8 fl (7.0-11.0); MONO # 0.4 (0.1-0.6); MONO % 3.2 % (1.0-6.0); RED CELL DISTRIBUTION WIDTH 46.6 % (11.5-14.5)
[2016-12-09] MEDS ORDERED: Iohexol 350 MG/100 ML VIAL ONE (08:56)
[2016-12-09 08:57] LABS: BASO # 0.02 K/mm3 (0.0-2.0); EOS # 0.2 (0.0-0.7); GRAN % 84.5 % (50.0-68.0)
[2016-12-09 09:42] VITALS: O2SAT 99
[2016-12-09 09:48] VITALS: TEMP 98.4
--- NOTE | 2016-12-09 10:26 | CT ---
PROCEDURE: CT Abdomen and Pelvis with contrast HISTORY: Abdominal pain COMPARISON: 10/21/2016 and 08/12/2016 TECHNIQUE: CT scan of the abdomen and pelvis was performed after intravenous administration of contrast. Oral contrast was not administered. Coronal and sagittal reformatted images were obtained. Contrast dose: Radiation dose: Total exam DLP = 244.29 mGy-cm. This CT exam was performed using one or more of the following dose reduction techniques: Automated exposure control, adjustment of the mA and/or kV according to patient size, and/or use of iterative reconstruction technique. FINDINGS: LOWER THORAX: There is bibasilar subsegmental atelectasis. LIVER: The liver is normal in size and there is homogeneous enhancement. No gross lesion or ductal dilatation. GALLBLADDER AND BILE DUCTS: There are no calcified gallstones. PANCREAS: The pancreas is normal in size and there is homogeneous enhancement. No gross lesion or ductal dilatation. SPLEEN: The spleen is normal in size and there is homogeneous enhancement without focal mass. ADRENALS: Both adrenal glands are normal in size without discrete nodule. KIDNEYS AND URETERS: Both kidneys are normal in size and there is homogeneous enhancement without hydronephrosis or focal mass. VASCULATURE: No aortic aneurysm. BOWEL: The small bowel loops are normal in caliber. There is large amount of stool in the colon. No evidence of bowel dilatation or obstruction. APPENDIX: Normal appendix. PERITONEUM: No free fluid. No free air. LYMPH NODES: No enlarged lymph nodes. BLADDER: Unremarkable. REPRODUCTIVE: Unremarkable. BONES: No acute fracture. Status post right hip arthroplasty. OTHER FINDINGS: None. IMPRESSION: No acute abdominal or pelvic abnormality.
[2016-12-09 11:20] VITALS: BP 122/82; PULSE 68; RESP 16
== END 2016-12-09 11:09 | disposition home or self-care (01) ==
LOC: ED 04:24 → EROBSV 06:30
PROVIDERS: ADMIT Emergency Medicine; ATTEND Emergency Medicine
DX: R10.9 Unspecified abdominal pain (principal); R11.10 Vomiting, unspecified; F17.210 Nicotine dependence, cigarettes, uncomplicated
CPT/HCPCS: 36415; 74177; 80053; 83690; 85025; 96374; 96375; 99282; G0378; J1170; J2765; Q9967

== ENCOUNTER 2017-01-04 20:27 | Emergency (ER) | payer MEDICAID, OTHER ==
[2017-01-04 20:32] VITALS: BMI 20.1
[2017-01-04 20:34] VITALS: PULSE 71
[2017-01-04 20:37] VITALS: TEMP 98.1
[2017-01-04] MEDS ORDERED: Sodium Chloride 0.9% 1,000 ML IV STA (20:47)
[2017-01-04] MEDS ORDERED: HYDROmorphone 2 mg/ml ISec IVP STA ×2 (20:48→22:34)
--- NOTE | 2017-01-04 21:21 | ED PDOC ---
Arrival/HPI - General Chief Complaint: GI Problem Time Seen by Provider: 01/04/17 20:39 Historian: Patient - History of Present Illness Narrative History of Present Illness (Text): 01/04/17 20:39 Nereida Rahman is a 56 year old female, whose past medical history includes gastritis, who presents to the emergency department complaining of vomiting and abdominal pain after eating pork tonight. Patient denies any fever, chills, chest pain, shortness of breath, nausea, diarrhea, urinary symptoms, back pain, neck pain, headache, dizziness, trauma/injury, suicidal/homicidal ideation or any other complaints. Time/Duration: 1-3 hours Symptom Onset: Gradual Symptom Course: Unchanged Activities at Onset: Light Context: Home Past Medical History - Provider Review Nursing Documentation Reviewed: Yes - Infectious Disease Hx of Infectious Diseases: None - Tetanus Immunization Tetanus Immunization: Unknown - Past Medical History Past Medical History: No Previous - Cardiac Hx Cardiac Disorders: No - Pulmonary Hx Respiratory Disorders: Yes (SMOKES CIGARETTES 3 /DAY) - Neurological Hx Neurological Disorder: No - HEENT Hx HEENT Disorder: No - Renal Hx Renal Disorder: No - Endocrine/Metabolic Hx Endocrine Disorders: No - Hematological/Oncological Hx Blood Disorders: No - Integumentary Hx Dermatological Disorder: No - Musculoskeletal/Rheumatological Hx Musculoskeletal Disorders: Yes Hx Falls: Yes - Gastrointestinal Hx Gastrointestinal Disorders: Yes Hx Gall Bladder Disease: Yes - Genitourinary/Gynecological Hx Genitourinary Disorders: No - Psychiatric Hx Psychophysiologic Disorder: Yes Hx Anxiety: Yes Hx Depression: Yes Hx Substance Use: No - Surgical History Hx Orthopedic Surgery: Yes (right hip replacement, right rotator cuff) Other/Comment: RIGHT SHOULDER SX, - Anesthesia Hx Anesthesia: Yes Hx Anesthesia Reactions: No Hx Malignant Hyperthermia: No - Suicidal Assessment Feels Threatened In Home Enviroment: No Family/Social History - Physician Review Nursing Documentation Reviewed: Yes Family/Social History: No Known Family HX Smoking Status: Light Smoker < 10 Cigarettes Daily Hx Alcohol Use: No Hx Substance Use: No Substance used: weed Hx Substance Use Treatment: No Allergies/Home Meds Allergies/Adverse Reactions: Allergies blueberry Allergy (Verified 01/04/17 20:31) URTICARIA shellfish derived Allergy (Verified 01/04/17 20:31) RASH Home Medications: Home Meds Medication Instructions Recorded Confirmed ALPRAZolam [Xanax] 1 mg PO TID 01/04/17 01/04/17 Review of Systems - Physician Review All systems were reviewed & negative as marked: Yes - Review of Systems Constitutional: absent: Fevers, Night Sweats Eyes: absent: Vision Changes ENT: absent: Hearing Changes Respiratory: absent: SOB, Cough Cardiovascular: absent: Chest Pain Gastrointestinal: Abdominal Pain, Vomiting Genitourinary Female: absent: Dysuria, Urine Output Changes Musculoskeletal: absent: Arthralgias Skin: absent: Rash Neurological: absent: Headache, Dizziness Endocrine: absent: Diaphoresis Hemo/Lymphatic: absent: Adenopathy Physical Exam Vital Signs Reviewed: Yes Vital Signs Temp Pulse Resp BP Pulse Ox 01/04/17 22:54 12 134/64 97 01/04/17 20:36 98.1 F 01/04/17 20:33 71 19 125/73 98 Blood Pressure: Normal Pulse: Regular Respiratory Rate: Normal Appearance: Positive for: Well-Appearing, Non-Toxic, Comfortable Pain Distress: None Mental Status: Positive for: Alert and Oriented X 3 - Systems Exam Head: Present: Atraumatic, Normocephalic Pupils: Present: PERRL Extroacular Muscles: Present: EOMI Conjunctiva: Present: Normal Mouth: Present: Moist Mucous Membranes Neck: Present: Normal Range of Motion Respiratory/Chest: Present: Clear to Auscultation, Good Air Exchange. No: Respiratory Distress, Accessory Muscle Use Cardiovascular: Present: Regular Rate and Rhythm, Normal S1, S2. No: Murmurs Abdomen: Present: Normal Bowel Sounds. No: Tenderness, Distention, Peritoneal Signs Back: Present: Normal Inspection Upper Extremity: Present: Normal Inspection. No: Cyanosis, Edema Lower Extremity: Present: Normal Inspection. No: Edema Neurological: Present: GCS=15, CN II-XII Intact, Speech Normal Skin: Present: Warm, Dry, Normal Color. No: Rashes Psychiatric: Present: Alert, Oriented x 3, Normal Insight, Normal Concentration Medical Decision Making ED Course and Treatment: 01/04/17 21:22 Impression: 56 year old female complaining of vomiting and abdominal pain after eating pork tonight Differential Diagnosis included but are not limited to: Plan: -- Urinalysis -- Labs -- Dilaudid, Protonix, Zofran and IV fluids -- Reassess and disposition Prior Visits: Notes and results from previous visits were reviewed. Patient last seen in the ED on 12/09/2016 for abdominal pain, nausea and vomiting for two hours that day. Patient was discharged home. Progress Notes: - Lab Interpretations Lab Results: 01/04/17 22:00 01/04/17 21:45 Lab Results 01/04/17 22:00: WBC 6.8 D, RBC 4.56, Hgb 14.3, Hct 40.8, MCV 89.5, MCH 31.4, MCHC 35.0, RDW 12.7, Plt Count 245, MPV 9.0, Gran % 76.5 H, Lymph % (Auto) 18.3 L, Bulloch % (Auto) 4.1, Eos % (Auto) 1.0 L, Baso % (Auto) 0.1, Gran # 5.18, Lymph # 1.2, Bulloch # 0.3, Eos # 0.1, Baso # 0.01 01/04/17 21:45: Sodium 139, Potassium 3.8, Chloride 107, Carbon Dioxide 26, Anion Gap 10, BUN 12, Creatinine 0.9, Est GFR ( Amer) > 60, Est GFR (Non- Af Amer) > 60, Random Glucose 108, Calcium 9.2, Total Bilirubin 1.0, AST 55 H, ALT 25, Alkaline Phosphatase 83, Total Protein 6.6, Albumin 4.0, Globulin 2.6, Albumin/Globulin Ratio 1.5, Lipase 67 I have reviewed the lab results: Yes - Medication Orders Current Medication Orders: Discontinued Medications Hydromorphone HCl (Dilaudid) 2 mg IVP STAT STA Stop: 01/04/17 20:49 Last Admin: 01/04/17 21:45 Dose: 2 mg MAR Pain Assessment Document 01/04/17 21:45 SS (Rec: 01/04/17 21:45 SS [id number]) Pain Reassessment Is this a pain reassessment? No Sleep Is patient sleeping during reassessment? No Presence of Pain Presence of Pain Yes Location Pain Location Body Site Abdomen Description Description Constant Pain Behavior Moaning Crying Guarding Irritability Grasping Site IVP Administration Document 01/04/17 21:45 SS (Rec: 01/04/17 21:45 SS [id number]) Charges for Administration # of IVP Administrations 1 Hydromorphone HCl (Dilaudid) 2 mg IVP STAT STA Stop: 10/15/17 22:35 Last Admin: 01/04/17 22:53 Dose: 2 mg MAR Pain Assessment Document 01/04/17 22:53 SS (Rec: 01/04/17 22:53 SS [id number]) Pain Reassessment Is this a pain reassessment? Yes Sleep Is patient sleeping during reassessment? No Presence of Pain Presence of Pain Yes Location Pain Location Body Site Abdomen IVP Administration Document 01/04/17 22:53 SS (Rec: 01/04/17 22:53 SS [id number]) Charges for Administration # of IVP Administrations 1 Sodium Chloride (Sodium Chloride 0.9%) 1,000 mls @ 100 mls/hr IV .Q10H STA Stop: 01/05/17 06:46 Last Admin: 01/04/17 22:33 Dose: 100 mls/hr eMAR Start Stop Document 01/04/17 22:33 SS (Rec: 01/04/17 22:33 SS [id number]) Intravenous Solution Start Date 01/04/17 Start Time 22:33 Ondansetron HCl (Zofran Inj) 4 mg IVP STAT STA Stop: 01/04/17 20:48 Last Admin: 01/04/17 21:45 Dose: 4 mg IVP Administration Document 01/04/17 21:45 SS (Rec: 01/04/17 21:45 SS [id number]) Charges for Administration # of IVP Administrations 1 Ondansetron HCl (Zofran Inj) 4 mg IVP STAT STA Stop: 01/04/17 22:35 Last Admin: 01/04/17 22:53 Dose: 4 mg IVP Administration Document 01/04/17 22:53 SS (Rec: 01/04/17 22:54 SS [id number]) Charges for Administration # of IVP Administrations 1 Pantoprazole Sodium (Protonix Inj) 40 mg IVP STAT STA Stop: 01/04/17 20:48 Last Admin: 01/04/17 21:45 Dose: 40 mg IVP Administration Document 01/04/17 21:45 SS (Rec: 01/04/17 21:45 SS [id number]) Charges for Administration # of IVP Administrations 1 - Scribe Statement The provider has reviewed the documentation as recorded by the Stevan Beal Provider Scribe Attestation: All medical record entries made by the Scribe were at my direction and personally dictated by me. I have reviewed the chart and agree that the record accurately reflects my personal performance of the history, physical exam, medical decision making, and the department course for this patient. I have also personally directed, reviewed, and agree with the discharge instructions and disposition. Disposition/Present on Arrival - Present on Arrival Any Indicators Present on Arrival: No History of DVT/PE: No History of Uncontrolled Diabetes: No Urinary Catheter: No History of Decub. Ulcer: No History Surgical Site Infection Following: None - Disposition Have Diagnosis and Disposition been Completed?: Yes Diagnosis: Intractable vomiting Disposition: HOME/ ROUTINE Disposition Time: 23:30 Condition: GOOD Discharge Instructions (ExitCare): Acute Nausea and Vomiting (ED) Referrals: Della Salcedo, [Primary Care Provider] - Follow up with primary Forms: [facility] (Portuguese)
[2017-01-04 22:03] LABS: ALB/GLOB RATIO 1.5 (1.1-1.8); ALKALINE PHOSPHATASE 83 U/L (38-126); ALT/SGPT 25 U/L (7-56); AST/SGOT 55 U/L (14-36); BLOOD UREA NITROGEN 12 mg/dL (7-21); CALCIUM 9.2 mg/dL (8.4-10.5); CARBON DIOXIDE 26 mmol/L (21-33); CHLORIDE 107 mmol/L (98-107); GFR AFRICAN-AMERICAN > 60; GLUCOSE,RANDOM 108 mg/dL (70-110); LIPASE 67 U/L (23-300); POTASSIUM 3.8 mmol/L (3.6-5.0); SODIUM 139 mmol/L (132-148); TOTAL PROTEIN 6.6 g/dL (5.8-8.3)
[2017-01-04 22:18] LABS: BASO # 0.01 K/mm3 (0.0-2.0); BASO % 0.1 % (0.0-3.0); EOS # 0.1 (0.0-0.7); GRAN # 5.18 (1.4-6.5); GRAN % 76.5 % (50.0-68.0); HEMATOCRIT 40.8 % (36.0-48.0); LYMPH # 1.2 (1.2-3.4); LYMPH % 18.3 % (22.0-35.0); MEAN CELL VOLUME 89.5 fl (80.0-105.0); MEAN CORPUSCULAR HEMOGLOBIN 31.4 pg (25.0-35.0); MONO # 0.3 (0.1-0.6); MONO % 4.1 % (1.0-6.0); RED CELL DISTRIBUTION WIDTH 12.7 % (11.5-14.5); WHITE BLOOD COUNT 6.8 10^3/ul (4.5-11.0)
[2017-01-04 22:54] VITALS: BP 134/64; RESP 12; O2SAT 97
== END 2017-01-05 00:07 | disposition home or self-care (01) ==
LOC: ED 20:27
DX: R11.10 Vomiting, unspecified (principal)
CPT/HCPCS: 80053; 83690; 85025; 96374; 96375; 96376; 99283; C9113; J1170; J2405; J7040

== ENCOUNTER 2017-01-12 23:35 | Emergency (ER) | payer MEDICAID, OTHER ==
[2017-01-12 23:35] VITALS: BMI 20.1
--- NOTE | 2017-01-12 23:50 | ED PDOC ---
Arrival/HPI - General Time Seen by Provider: 01/12/17 23:36 Historian: Patient - History of Present Illness Narrative History of Present Illness (Text): 01/12/17 23:50 Nereida Rahman is a 56 year old female, whose past medical history includes recurrent abdominal pain, gastritis, substance abuse, anxiety, and depression, who presents to the emergency department complaining of upper abdominal pain for the past 2 hours. Patient reports associated nausea and vomiting. Patient states she ate was turkey breast for dinner tonight. Patient denies any fever, chills, chest pain, shortness of breath, nausea, vomiting, diarrhea, urinary symptoms, back pain, neck pain, headache, dizziness, or any other complaints. Time/Duration: 1-3 hours (2 hours) Symptom Onset: Gradual Symptom Course: Unchanged Activities at Onset: Light Context: Home Past Medical History - Provider Review Nursing Documentation Reviewed: Yes - Infectious Disease Hx of Infectious Diseases: None - Tetanus Immunization Tetanus Immunization: Unknown - Past Medical History Past Medical History: No Previous - Cardiac Hx Cardiac Disorders: No - Pulmonary Hx Respiratory Disorders: Yes (SMOKES CIGARETTES 3 /DAY) - Neurological Hx Neurological Disorder: No - HEENT Hx HEENT Disorder: No - Renal Hx Renal Disorder: No - Endocrine/Metabolic Hx Endocrine Disorders: No - Hematological/Oncological Hx Blood Disorders: No - Integumentary Hx Dermatological Disorder: No - Musculoskeletal/Rheumatological Hx Musculoskeletal Disorders: Yes Hx Falls: Yes - Gastrointestinal Hx Gastrointestinal Disorders: Yes Hx Gall Bladder Disease: Yes Hx Gastritis: Yes - Genitourinary/Gynecological Hx Genitourinary Disorders: No - Psychiatric Hx Psychophysiologic Disorder: Yes Hx Anxiety: Yes Hx Depression: Yes Hx Substance Use: No - Surgical History Hx Orthopedic Surgery: Yes (right hip replacement, right rotator cuff) Other/Comment: RIGHT SHOULDER SX, - Anesthesia Hx Anesthesia: Yes Hx Anesthesia Reactions: No Hx Malignant Hyperthermia: No - Suicidal Assessment Feels Threatened In Home Enviroment: No Family/Social History - Physician Review Nursing Documentation Reviewed: Yes Family/Social History: Unknown Family HX Smoking Status: Light Smoker < 10 Cigarettes Daily Hx Alcohol Use: No Hx Substance Use: No Substance used: weed Hx Substance Use Treatment: No Allergies/Home Meds Allergies/Adverse Reactions: Allergies blueberry Allergy (Verified 01/04/17 20:31) URTICARIA shellfish derived Allergy (Verified 01/04/17 20:31) RASH Home Medications: Home Meds Medication Instructions Recorded Confirmed ALPRAZolam [Xanax] 1 mg PO TID 01/04/17 01/04/17 Review of Systems - Physician Review All systems were reviewed & negative as marked: Yes - Review of Systems Constitutional: Normal. absent: Fevers Eyes: Normal ENT: Normal Respiratory: Normal. absent: SOB, Cough Cardiovascular: Normal. absent: Chest Pain Gastrointestinal: Abdominal Pain, Nausea, Vomiting. absent: Diarrhea Genitourinary Female: Normal. absent: Dysuria, Frequency, Hematuria, Urine Output Changes Musculoskeletal: Normal. absent: Back Pain, Neck Pain Skin: Normal. absent: Rash Neurological: Normal. absent: Headache, Dizziness Endocrine: Normal Hemo/Lymphatic: Normal Psychiatric: Normal Physical Exam Vital Signs Reviewed: Yes Vital Signs Temp Pulse Resp BP Pulse Ox 01/13/17 00:37 98.2 F 65 18 128/85 97 Temperature: Afebrile Blood Pressure: Normal Pulse: Regular Respiratory Rate: Normal Appearance: Positive for: Well-Appearing, Non-Toxic, Comfortable Pain Distress: None Mental Status: Positive for: Alert and Oriented X 3 - Systems Exam Head: Present: Atraumatic, Normocephalic Pupils: Present: PERRL Extroacular Muscles: Present: EOMI Conjunctiva: Present: Normal Mouth: Present: Moist Mucous Membranes Neck: Present: Normal Range of Motion Respiratory/Chest: Present: Clear to Auscultation, Good Air Exchange. No: Respiratory Distress, Accessory Muscle Use Cardiovascular: Present: Regular Rate and Rhythm, Normal S1, S2. No: Murmurs Abdomen: Present: Tenderness (Epigastric tenderness), Normal Bowel Sounds. No: Distention, Peritoneal Signs Back: Present: Normal Inspection Upper Extremity: Present: Normal Inspection. No: Cyanosis, Edema Lower Extremity: Present: Normal Inspection. No: Edema Neurological: Present: GCS=15, CN II-XII Intact, Speech Normal Skin: Present: Warm, Dry, Normal Color. No: Rashes Psychiatric: Present: Alert, Oriented x 3, Normal Insight, Normal Concentration Medical Decision Making ED Course and Treatment: 01/12/17 23:50 Impression: 56 year old female complaining of upper abdominal pain, nausea, and vomiting. Plan: -- Labs, lipase -- Urinalysis -- IV fluids -- Zofran -- Protonix -- Dilaudid -- Reassess and disposition Prior Visits: Notes and results from previous visits were reviewed. On 01/04/2017, pt was seen in the Emergency department for abdominal pain. Pt was discharged home. Progress Notes: - Lab Interpretations Lab Results: 01/13/17 00:10 01/13/17 00:10 Lab Results 01/13/17 00:10: WBC 6.6, RBC 4.72, Hgb 14.9, Hct 42.5, MCV 90.0, MCH 31.6, MCHC 35.1, RDW 12.7, Plt Count 243, MPV 8.6 01/13/17 00:10: Sodium 147, Potassium 3.7, Chloride 106, Carbon Dioxide 26, Anion Gap 19, BUN 7, Creatinine 0.7, Est GFR ( Amer) > 60, Est GFR (Non- Af Amer) > 60, Random Glucose 98, Calcium 9.5, Total Bilirubin 0.6, AST 66 H, ALT 22, Alkaline Phosphatase 82, Total Protein 7.6, Albumin 4.8, Globulin 2.8, Albumin/Globulin Ratio 1.7, Lipase 174 - Medication Orders Current Medication Orders: Discontinued Medications Hydromorphone HCl (Dilaudid) 2 mg IVP STAT STA Stop: 01/12/17 23:57 Last Admin: 01/13/17 00:21 Dose: 2 mg MAR Pain Assessment Document 01/13/17 00:21 JESUS (Rec: 01/13/17 00:21 [email or web address]) Pain Reassessment Is this a pain reassessment? Yes Location Pain Location Body Site Abdomen Description Alleviating Factors Distraction IVP Administration Document 01/13/17 00:21 JESUS (Rec: 01/13/17 00:21 [id number] Charges for Administration # of IVP Administrations 1 Sodium Chloride (Sodium Chloride 0.9%) 1,000 mls @ 999 mls/hr IV .Q1H1M STA Stop: 01/13/17 00:53 Last Admin: 01/13/17 00:20 Dose: 999 mls/hr eMAR Start Stop Document 01/13/17 00:20 JESUS (Rec: 01/13/17 00:20 [email or web address] Intravenous Solution Start Date 01/13/17 Start Time 00:20 Ondansetron HCl (Zofran Inj) 4 mg IVP ONCE ONE Stop: 01/12/17 23:57 Last Admin: 01/13/17 00:21 Dose: 4 mg IVP Administration Document 01/13/17 00:21 JESUS (Rec: 01/13/17 00:21 [id number] Charges for Administration # of IVP Administrations 1 Pantoprazole Sodium (Protonix Inj) 40 mg IVP ONCE STA Stop: 01/12/17 23:54 Last Admin: 01/13/17 00:20 Dose: 40 mg IVP Administration Document 01/13/17 00:20 JESUS (Rec: 01/13/17 00:20 [id number] Charges for Administration # of IVP Administrations 1 - Scribe Statement The provider has reviewed the documentation as recorded by the Stevan Velazquez Provider Scribe Attestation: All medical record entries made by the Scribe were at my direction and personally dictated by me. I have reviewed the chart and agree that the record accurately reflects my personal performance of the history, physical exam, medical decision making, and the department course for this patient. I have also personally directed, reviewed, and agree with the discharge instructions and disposition. Disposition/Present on Arrival - Present on Arrival Any Indicators Present on Arrival: No History of DVT/PE: No History of Uncontrolled Diabetes: No Urinary Catheter: No History of Decub. Ulcer: No History Surgical Site Infection Following: None - Disposition Have Diagnosis and Disposition been Completed?: Yes Diagnosis: Gastritis Disposition: HOME/ ROUTINE Disposition Time: 02:45 Patient Plan: Discharge Condition: STABLE Discharge Instructions (ExitCare): Gastritis (ED)
[2017-01-12] MEDS ORDERED: Sodium Chloride 0.9% 1,000 ML IV STA (23:53)
[2017-01-12] MEDS ORDERED: HYDROmorphone 2 mg/ml ISec IVP STA (23:56)
[2017-01-13 00:13] LABS: HEMATOCRIT 42.5 % (36.0-48.0); MEAN CORPUSCULAR HEMOGLOBIN 31.6 pg (25.0-35.0); MEAN CORPUSCULAR HGB CONC 35.1 g/dl (31.0-37.0); MEAN PLATELET VOLUME 8.6 fl (7.0-11.0); RED CELL DISTRIBUTION WIDTH 12.7 % (11.5-14.5); WHITE BLOOD COUNT 6.6 10^3/ul (4.5-11.0)
[2017-01-13 00:27] LABS: ALB/GLOB RATIO 1.7 (1.1-1.8); ALKALINE PHOSPHATASE 82 U/L (38-126); ALT/SGPT 22 U/L (7-56); AST/SGOT 66 U/L (14-36); BILIRUBIN,TOTAL 0.6 mg/dL (0.2-1.3); BLOOD UREA NITROGEN 7 mg/dL (7-21); CALCIUM 9.5 mg/dL (8.4-10.5); CARBON DIOXIDE 26 mmol/L (21-33); CHLORIDE 106 mmol/L (98-107); GFR AFRICAN-AMERICAN > 60; GLUCOSE,RANDOM 98 mg/dL (70-110); LIPASE 174 U/L (23-300); POTASSIUM 3.7 mmol/L (3.6-5.0); SODIUM 147 mmol/L (132-148); TOTAL PROTEIN 7.6 g/dL (5.8-8.3)
[2017-01-13 00:38] VITALS: BP 128/85; PULSE 65; RESP 18; TEMP 98.2; O2SAT 97
[2017-01-13 07:16] LABS: PH,URINE 6.5 (4.7-8.0); URINE APPEARANCE CLEAR (CLEAR); URINE BILIRUBIN NEGATIVE (NEGATIVE); URINE BLOOD NEGATIVE (NEGATIVE); URINE COLOR YELLOW (YELLOW); URINE GLUCOSE (UA) NEGATIVE (NEGATIVE); URINE KETONE NEGATIVE (NEGATIVE); URINE LEUKOCYTE ESTERASE NEGATIVE Leu/uL (NEGATIVE); URINE PROTEIN NEGATIVE mg/dL (<30 mg/dL); URINE UROBILINOGEN 0.2 E.U./dL (<1 E.U./dL)
== END 2017-01-13 02:40 | disposition home or self-care (01) ==
LOC: ED 23:35
DX: K29.70 Gastritis, unspecified, without bleeding (principal); F17.210 Nicotine dependence, cigarettes, uncomplicated; Z96.641 Presence of right artificial hip joint
CPT/HCPCS: 80053; 81003; 83690; 84703; 85027; 96374; 96375; 99282; C9113; J1170; J2405; J7040

== ENCOUNTER 2017-03-22 18:40 | Emergency (ER) | payer MEDICAID, OTHER ==
[2017-03-22 18:41] VITALS: BMI 20.1
[2017-03-22] MEDS ORDERED: Sodium Chloride 0.9% 1,000 ML IV STA (19:21)
[2017-03-22] MEDS ORDERED: HYDROmorphone 1 mg/ml ISec IVP STA ×2 (19:22→20:52)
[2017-03-22 19:45] LABS: BASO # 0.02 K/mm3 (0.0-2.0); BASO % 0.2 % (0.0-3.0); EOS # 0.3 (0.0-0.7); EOS % 2.8 % (1.5-5.0); GRAN # 7.94 (1.4-6.5); HEMOGLOBIN 13.3 g/dL (12.0-16.0); LYMPH # 1.1 (1.2-3.4); LYMPH % 11.4 % (22.0-35.0); MEAN CELL VOLUME 92.5 fl (80.0-105.0); MEAN CORPUSCULAR HEMOGLOBIN 31.2 pg (25.0-35.0); MEAN CORPUSCULAR HGB CONC 33.8 g/dl (31.0-37.0); MEAN PLATELET VOLUME 8.8 fl (7.0-11.0); MONO # 0.6 (0.1-0.6); MONO % 5.6 % (1.0-6.0); RBC 4.26 10^6/uL (3.5-6.1); RED CELL DISTRIBUTION WIDTH 13.1 % (11.5-14.5); WHITE BLOOD COUNT 9.9 10^3/ul (4.5-11.0)
[2017-03-22 19:49] LABS: ALB/GLOB RATIO 1.5 (1.1-1.8); ALBUMIN 4.3 g/dL (3.0-4.8); ALT/SGPT 23 U/L (7-56); AST/SGOT 56 U/L (14-36); BLOOD UREA NITROGEN 18 mg/dL (7-21); CALCIUM 9.2 mg/dL (8.4-10.5); GFR AFRICAN-AMERICAN > 60; GFR NON-AFRICAN AMERICAN > 60; LIPASE 91 U/L (23-300)
[2017-03-22 19:52] LABS: INR 0.98 (0.93-1.08); PARTIAL THROMBOPLASTIN TIME 30.4 Seconds (25.1-36.5); PROTHROMBIN TIME 10.7 SECONDS (9.4-12.5)
--- NOTE | 2017-03-22 20:55 | ED PDOC ---
Arrival/HPI - General Chief Complaint: Abdominal Pain Time Seen by Provider: 03/22/17 18:55 Historian: Patient - History of Present Illness Narrative History of Present Illness (Text): 03/22/17 21:00 56-year-old female w/ ast medical history includes recurrent abdominal pain, gastritis, substance abuse, anxiety, and depression, presents to the emergency room complaining of abdominal pain, nausea, vomiting, diarrhea which started one hour prior to arrival. She states that she gets frequent attacks of gastroenteritis and has had numerous extensive workups in the past. Patient denies any fever, chills, chest pain, shortness of breath, urinary symptoms, back pain, neck pain, headache, dizziness, recent travel, sick contacts, recent antibiotic use or any other complaints. Patient states that she has had a normal endoscopy 1.5 years ago and normal colonoscopy 3 years ago. She states that she has had multiple abdominal CTs done this year, at least 25, and does not want any done today. PMD Angie Past Medical History - Provider Review Nursing Documentation Reviewed: Yes - Infectious Disease Hx of Infectious Diseases: None - Tetanus Immunization Tetanus Immunization: Unknown - Past Medical History Past Medical History: No Previous - Cardiac Hx Cardiac Disorders: No - Pulmonary Hx Respiratory Disorders: Yes (SMOKES CIGARETTES 3 /DAY) - Neurological Hx Neurological Disorder: No - HEENT Hx HEENT Disorder: No - Renal Hx Renal Disorder: No - Endocrine/Metabolic Hx Endocrine Disorders: No - Hematological/Oncological Hx Blood Disorders: No - Integumentary Hx Dermatological Disorder: No - Musculoskeletal/Rheumatological Hx Musculoskeletal Disorders: Yes Hx Falls: Yes - Gastrointestinal Hx Gastrointestinal Disorders: Yes Hx Gall Bladder Disease: Yes Hx Gastritis: Yes - Genitourinary/Gynecological Hx Genitourinary Disorders: No - Psychiatric Hx Psychophysiologic Disorder: Yes Hx Anxiety: Yes Hx Depression: Yes Hx Substance Use: Yes - Surgical History Hx Orthopedic Surgery: Yes (right hip replacement, right rotator cuff) Other/Comment: RIGHT SHOULDER SX, - Anesthesia Hx Anesthesia: Yes Hx Anesthesia Reactions: No Hx Malignant Hyperthermia: No - Suicidal Assessment Feels Threatened In Home Enviroment: No Family/Social History - Physician Review Nursing Documentation Reviewed: Yes Family/Social History: Unknown Family HX Smoking Status: Light Smoker < 10 Cigarettes Daily Hx Alcohol Use: Yes Hx Substance Use: Yes Substance used: weed Hx Substance Use Treatment: No Allergies/Home Meds Allergies/Adverse Reactions: Allergies blueberry Allergy (Verified 03/22/17 18:55) URTICARIA shellfish derived Allergy (Verified 03/22/17 18:55) RASH Home Medications: Home Meds Medication Instructions Recorded Confirmed ALPRAZolam [Xanax] 1 mg PO TID 01/04/17 03/22/17 Ondansetron ODT [Zofran ODT] 4 mg PO Q6 PRN 03/22/17 03/22/17 Review of Systems - Review of Systems Constitutional: absent: Fatigue, Weight Change, Fevers Respiratory: absent: SOB, Cough, Sputum, Wheezing Cardiovascular: absent: Chest Pain, Palpitations, Edema Gastrointestinal: Abdominal Pain, Diarrhea, Nausea, Vomiting Genitourinary Female: absent: Dysuria, Frequency, Hematuria Musculoskeletal: absent: Arthralgias, Back Pain, Neck Pain Skin: absent: Rash, Pruritis, Skin Lesions Neurological: absent: Headache, Dizziness, Focal Weakness Physical Exam - Physical Exam Narrative Physical Exam (Text): 03/22/17 20:55 GENERAL APPEARANCE: Patient is awake, alert, oriented x 3, in moderate painful distress. SKIN: Warm, dry; (-) cyanosis. EYES: (-) conjunctival pallor, (-) scleral icterus. ENMT: Mucous membranes dry. NECK: (-) tenderness, (-) stiffness, (-) lymphadenopathy. CHEST AND RESPIRATORY: (-) rales, (-) rhonchi, (-) wheezes; breath sounds equal bilaterally. HEART AND CARDIOVASCULAR: (-) irregularity; (-) murmur, (-) gallop. ABDOMEN AND GI: (-) distention. Bowel sounds active; (+) diffuse abdominal tenderness, (-) guarding, (-) rebound, (-) palpable masses, (-) CVA tenderness. EXTREMITIES: (-) deformity, (-) edema, (+) distal pulses. NEURO AND PSYCH: Mental status as above; (-) focal findings. Vital Signs Temp Pulse Resp BP Pulse Ox 03/22/17 21:27 98.0 F 78 17 124/71 98 03/22/17 21:06 78 17 134/74 98 03/22/17 18:50 97.8 F 69 18 155/94 H 99 03/22/17 18:45 97.8 F 69 18 155/94 H 99 Medical Decision Making ED Course and Treatment: 03/22/17 20:56 56-year-old female presents to the emergency room complaining of abdominal pain , nausea, vomiting, diarrhea which started one hour prior to arrival. Previous medical records reviewed : reveals that the patient has been to this emergency room several times with similar complaints, patient was recently seen in this emergency room in December and January of this year, during both visits patient was complaining of similar symptoms of abdominal pain. Plan: -- Labs -- IV fluids -- Urinalysis -- Protonix / Zofran / Dilaudid -- Reassess and disposition On reevaluation, patient reports mild improvement of her abdominal pain, however she continues to complain of pain and is asking for another dose of pain medication. She also reports of nausea but denies any vomiting or diarrhea while in the emergency room. On exam, patient is laying in bed comfortably in mild painful distress. Abdomen is soft with minimal diffuse abdominal tenderness , no guarding, no rebound. Patient given another dose of Dilaudid 1 mg IV and Zofran 4 mg IV. Laboratory results reviewed and are within normal limits. Laboratory results discussed with the patient in great detail. Patient reports significant improvement of her symptoms, states that she feels comfortable going home. On exam, abdomen is soft with no tenderness, no guarding or rebound. Based on history, exam and diagnostic results plan will be for outpatient follow-up. Patient instructed to follow up with primary care physician in 1-2 days without fail. Return to the emergency room at any time for any new or worsening symptoms. Patient states she fully agrees with and understands discharge instructions. States that she agrees with the plan and disposition. Verbalized and repeated discharge instructions and plan. I have given the patient opportunity to ask any additional questions. - Lab Interpretations Lab Results: 03/22/17 19:19 03/22/17 19:19 Lab Results 03/22/17 19:19: Sodium 140, Potassium 3.8, Chloride 104, Carbon Dioxide 27, Anion Gap 13, BUN 18, Creatinine 0.7, Est GFR ( Amer) > 60, Est GFR (Non- Af Amer) > 60, Random Glucose 105, Calcium 9.2, Total Bilirubin 0.8, AST 56 H, ALT 23, Alkaline Phosphatase 80, Total Protein 7.1, Albumin 4.3, Globulin 2.8, Albumin/Globulin Ratio 1.5, Lipase 91 12/31/17 19:19: PT 10.7, INR 0.98, APTT 30.4 03/22/17 19:19: WBC 9.9 D, RBC 4.26, Hgb 13.3, Hct 39.4, MCV 92.5, MCH 31.2, MCHC 33.8, RDW 13.1, Plt Count 222, MPV 8.8, Gran % 80.0 H, Lymph % (Auto) 11.4 L, [place] % (Auto) 5.6, Eos % (Auto) 2.8, Baso % (Auto) 0.2, Gran # 7.94 H, Lymph # 1.1 L, [place] # 0.6, Eos # 0.3, Baso # 0.02 - Medication Orders Current Medication Orders: Discontinued Medications Hydromorphone HCl (Dilaudid) 1 mg IVP STAT STA Stop: 03/22/17 19:23 Last Admin: 03/22/17 19:36 Dose: 1 mg MAR Pain Assessment Document 03/22/17 19:36 IT (Rec: 03/22/17 19:36 [id number]) Pain Reassessment Is this a pain reassessment? No Sleep Is patient sleeping during reassessment? No Presence of Pain Presence of Pain Yes Pain Scale Used Pain Scale Used Numeric Location Left, Right or Bilateral Bilateral Pain Location Body Site Abdomen IVP Administration Document 03/22/17 19:36 IT (Rec: 03/22/17 19:36 [id number]) Charges for Administration # of IVP Administrations 1 Hydromorphone HCl (Dilaudid) 1 mg IVP STAT STA Stop: 03/22/17 20:53 Last Admin: 03/22/17 21:03 Dose: 1 mg MAR Pain Assessment Document 03/22/17 21:03 IT (Rec: 03/22/17 21:04 [id number]) Pain Reassessment Is this a pain reassessment? No Sleep Is patient sleeping during reassessment? No Presence of Pain Presence of Pain Yes Pain Scale Used Pain Scale Used Numeric Location Left, Right or Bilateral Bilateral Pain Location Body Site Abdomen IVP Administration Document 03/22/17 21:03 IT (Rec: 03/22/17 21:04 [id number]) Charges for Administration # of IVP Administrations 1 Sodium Chloride (Sodium Chloride 0.9%) 1,000 mls @ 1,000 mls/hr IV .Q1H STA Stop: 03/22/17 20:20 Last Admin: 03/22/17 19:35 Dose: 1,000 mls/hr eMAR Start Stop Document 03/22/17 19:35 IT (Rec: 03/22/17 19:36 IT [facility] [id number]) Intravenous Solution Start Date 03/22/17 Start Time 19:35 End Date 03/22/17 End time 20:35 Total Infusion Time 60 Ondansetron HCl (Zofran Inj) 4 mg IVP STAT STA Stop: 03/22/17 19:22 Last Admin: 03/22/17 19:36 Dose: 4 mg IVP Administration Document 03/22/17 19:36 IT (Rec: 03/22/17 19:36 IT [facility] [id number]) Charges for Administration # of IVP Administrations 1 Ondansetron HCl (Zofran Inj) 4 mg IVP STAT STA Stop: 03/22/17 20:53 Last Admin: 03/22/17 21:04 Dose: 4 mg IVP Administration Document 03/22/17 21:04 IT (Rec: 03/22/17 21:04 IT [facility] [id number]) Charges for Administration # of IVP Administrations 1 Pantoprazole Sodium (Protonix Inj) 40 mg IVP STAT STA Stop: 03/22/17 19:22 Last Admin: 03/22/17 19:35 Dose: 40 mg IVP Administration Document 03/22/17 19:35 IT (Rec: 03/22/17 19:35 IT [facility] [id number]) Charges for Administration # of IVP Administrations 1 - 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 Disposition/Present on Arrival - Present on Arrival Any Indicators Present on Arrival: No History of DVT/PE: No History of Uncontrolled Diabetes: No Urinary Catheter: No History of Decub. Ulcer: No History Surgical Site Infection Following: None - Disposition Have Diagnosis and Disposition been Completed?: Yes Diagnosis: Abdominal pain, Vomiting, Diarrhea Disposition: HOME/ ROUTINE Disposition Time: 21:00 Patient Plan: Discharge Condition: STABLE Discharge Instructions (ExitCare): Acute Diarrhea (ED), Abdominal Pain (ED) Print Language: LATVIAN Additional Instructions: Thank you for letting us take care of you today. You were treated for abdominal pain, diarrhea. The emergency medical care you received today was directed at your acute symptoms. Return to the Emergency Department if your symptoms worsen , do not improve, or if you have any other problems. Please contact your doctor in 2 days for re-evaluation and follow up. Bring any paperwork you were given at discharge with you along with any medications you are taking to your follow up visit. Our treatment cannot replace ongoing medical care by a primary care provider (PCP) outside of the emergency department. Thank you for allowing the [facility] team to be part of your care today. Referrals: Enmanuel Lewis MD [Primary Care Provider] - Follow up with primary Forms: [employer] (Irish)
[2017-03-22 21:06] VITALS: PULSE 78; RESP 17; O2SAT 98
[2017-03-22 21:29] VITALS: BP 124/71; TEMP 98
== END 2017-03-22 21:29 | disposition home or self-care (01) ==
LOC: ED 18:40
DX: R10.9 Unspecified abdominal pain (principal); R11.10 Vomiting, unspecified; R19.7 Diarrhea, unspecified
CPT/HCPCS: 80053; 83690; 85025; 85610; 85730; 96361; 96374; 96375; 96376; 99283; C9113; J1170; J2405; J7040

== ENCOUNTER 2017-03-23 12:04 | Observation (INO) | payer OTHER ==
[2017-03-23] MEDS ORDERED: Sodium Chloride 0.9% 1,000 ML IV STA ×2 (12:31→13:03)
[2017-03-23 13:00] LABS: VENOUS BLOOD GAS BASE EXCESS 1.2 mmol/L (0.0-2.0); VENOUS BLOOD GAS PO2 71 mm/Hg (30-55); VENOUS BLOOD PH 7.35 (7.32-7.43)
[2017-03-23] MEDS ORDERED: DiphenhydrAMINE 50 mg/ml Inj IVP STA (13:02)
[2017-03-23 13:14] LABS: BASO # 0.01 K/mm3 (0.0-2.0); BASO % 0.1 % (0.0-3.0); EOS # 0.2 (0.0-0.7); GRAN # 8.6 (1.4-6.5); GRAN % 82.7 % (50.0-68.0); HEMOGLOBIN 14.5 g/dL (12.0-16.0); LYMPH % 9.9 % (22.0-35.0); MEAN CELL VOLUME 93.8 fl (80.0-105.0); MEAN CORPUSCULAR HEMOGLOBIN 31.3 pg (25.0-35.0); MEAN CORPUSCULAR HGB CONC 33.3 g/dl (31.0-37.0); MEAN PLATELET VOLUME 9.4 fl (7.0-11.0); MONO # 0.6 (0.1-0.6); MONO % 5.3 % (1.0-6.0); RBC 4.64 10^6/uL (3.5-6.1); RED CELL DISTRIBUTION WIDTH 13.2 % (11.5-14.5); WHITE BLOOD COUNT 10.4 10^3/ul (4.5-11.0)
--- NOTE | 2017-03-23 13:17 | ED PDOC ---
Arrival/HPI - General Chief Complaint: Abdominal Pain Time Seen by Provider: 03/23/17 12:19 Historian: Patient - History of Present Illness Narrative History of Present Illness (Text): 03/23/17 13:17 A 56 year old female, whose past medical history includes gastritis, GI bleed, and anemia, presents to the emergency department for chronic recurrent abdominal pain, nausea, and vomiting. The patient admits to have similar symptoms in the past. The patient was seen in the emergency department last night for the same complaint and has been seen in this emergency department approximately 19 times for the same complaint. She notes having a couple episodes of diarrhea a few days ago, but the symptoms have resolved on their own. The patient denies any chest pain, fevers, headaches, or any other complaints at this time. Time/Duration: Other (chronic ) Symptom Course: Unchanged Quality: Cramping Severity Level: Mild Activities at Onset: Rest, Light Context: Home Past Medical History - Provider Review Nursing Documentation Reviewed: Yes - Infectious Disease Hx of Infectious Diseases: None - Tetanus Immunization Tetanus Immunization: Unknown - Past Medical History Past Medical History: No Previous - Cardiac Hx Cardiac Disorders: No - Pulmonary Hx Respiratory Disorders: Yes (SMOKES CIGARETTES 3 /DAY) - Neurological Hx Neurological Disorder: No - HEENT Hx HEENT Disorder: No - Renal Hx Renal Disorder: No - Endocrine/Metabolic Hx Endocrine Disorders: No - Hematological/Oncological Hx Blood Disorders: No - Integumentary Hx Dermatological Disorder: No - Musculoskeletal/Rheumatological Hx Musculoskeletal Disorders: Yes Hx Falls: Yes - Gastrointestinal Hx Gastrointestinal Disorders: Yes Hx Gall Bladder Disease: Yes Hx Gastritis: Yes - Genitourinary/Gynecological Hx Genitourinary Disorders: No - Psychiatric Hx Psychophysiologic Disorder: Yes Hx Anxiety: Yes Hx Depression: Yes Hx Substance Use: Yes - Surgical History Hx Orthopedic Surgery: Yes (right hip replacement, right rotator cuff) Other/Comment: RIGHT SHOULDER SX, - Anesthesia Hx Anesthesia: Yes Hx Anesthesia Reactions: No Hx Malignant Hyperthermia: No - Suicidal Assessment Feels Threatened In Home Enviroment: No Family/Social History - Physician Review Nursing Documentation Reviewed: Yes Family/Social History: No Known Family HX Smoking Status: Light Smoker < 10 Cigarettes Daily Hx Alcohol Use: Yes Hx Substance Use: Yes Substance used: weed Hx Substance Use Treatment: No Allergies/Home Meds Allergies/Adverse Reactions: Allergies blueberry Allergy (Verified 03/23/17 12:18) URTICARIA shellfish derived Allergy (Verified 03/23/17 12:18) RASH Home Medications: Home Meds Medication Instructions Recorded Confirmed ALPRAZolam [Xanax] 1 mg PO TID 01/04/17 03/23/17 Ondansetron ODT [Zofran ODT] 4 mg PO Q6 PRN 03/22/17 03/23/17 Review of Systems - Physician Review All systems were reviewed & negative as marked: Yes - Review of Systems Constitutional: absent: Fevers Cardiovascular: absent: Chest Pain Gastrointestinal: Abdominal Pain, Nausea, Vomiting Neurological: absent: Headache Physical Exam Vital Signs Reviewed: Yes Vital Signs Temp Pulse Resp BP Pulse Ox 03/23/17 16:35 70 18 140/70 99 03/23/17 16:12 98.4 F 67 18 138/69 100 03/23/17 15:00 69 18 145/72 98 03/23/17 13:50 73 18 148/74 98 03/23/17 12:21 99.0 F 71 21 152/81 H 99 Temperature: Afebrile Blood Pressure: Hypertensive Pulse: Regular Respiratory Rate: Normal Appearance: Positive for: Well-Appearing, Non-Toxic, Comfortable Pain Distress: Moderate Mental Status: Positive for: Alert and Oriented X 3 - Systems Exam Head: Present: Atraumatic, Normocephalic Pupils: Present: PERRL Extroacular Muscles: Present: EOMI Conjunctiva: Present: Normal Mouth: Present: Moist Mucous Membranes Neck: Present: Normal Range of Motion Respiratory/Chest: Present: Clear to Auscultation, Good Air Exchange. No: Respiratory Distress, Accessory Muscle Use Cardiovascular: Present: Regular Rate and Rhythm, Normal S1, S2. No: Murmurs Abdomen: Present: Normal Bowel Sounds. No: Tenderness, Distention, Peritoneal Signs Back: Present: Normal Inspection Upper Extremity: Present: Normal Inspection. No: Cyanosis, Edema Lower Extremity: Present: Normal Inspection. No: Edema Neurological: Present: GCS=15, CN II-XII Intact, Speech Normal Skin: Present: Warm, Dry, Normal Color. No: Rashes Psychiatric: Present: Alert, Oriented x 3, Normal Insight, Normal Concentration Medical Decision Making ED Course and Treatment: 03/23/17 18:15 pt resting comfortably, no distress, symptoms resolved, labs unremarkable. requesting dc. follow up and return precautions advised. - Lab Interpretations Lab Results: 03/23/17 12:50 03/23/17 12:50 Lab Results 03/23/17 12:50: Sodium 143, Chloride 105, Potassium 3.9, Carbon Dioxide 27, Anion Gap 15, BUN 13, Creatinine 0.7, Est GFR ( Amer) > 60, Est GFR (Non- Af Amer) > 60, Random Glucose 107, Calcium 9.4, Total Bilirubin 0.6, AST 54 H, ALT 27, Alkaline Phosphatase 89, Total Protein 7.3, Albumin 4.4, Globulin 2.9, Albumin/Globulin Ratio 1.5, Lipase 101 03/23/17 12:50: pO2 71 H, VBG pH 7.35, VBG pCO2 50.0, VBG HCO3 27.6, VBG Total CO2 29.1 H, VBG O2 Sat (Calc) 96.3 H, VBG Base Excess 1.2, VBG Potassium 3.7, Sodium 141.0, Chloride 105.0, Glucose 115 H, Lactate 1.6, FiO2 21.0, Venous Blood Potassium 3.7 03/23/17 12:50: WBC 10.4, RBC 4.64, Hgb 14.5, Hct 43.5, MCV 93.8, MCH 31.3, MCHC 33.3, RDW 13.2, Plt Count 222, MPV 9.4, Gran % 82.7 H, Lymph % (Auto) 9.9 L , [place] % (Auto) 5.3, Eos % (Auto) 2.0, Baso % (Auto) 0.1, Gran # 8.60 H, Lymph # 1.0 L, [place] # 0.6, Eos # 0.2, Baso # 0.01 - Medication Orders Current Medication Orders: Discontinued Medications Diphenhydramine HCl (Benadryl) 25 mg IVP STAT STA Stop: 03/23/17 13:03 Last Admin: 03/23/17 13:25 Dose: 25 mg IVP Administration Document 03/23/17 13:25 SF (Rec: 03/23/17 13:26 SF [facility] [id number]) Charges for Administration # of IVP Administrations 1 Sodium Chloride (Sodium Chloride 0.9%) 1,000 mls @ 999 mls/hr IV .Q1H1M STA Stop: 03/23/17 13:31 Last Admin: 03/23/17 12:55 Dose: 999 mls/hr eMAR Start Stop Document 03/23/17 12:55 SF (Rec: 03/23/17 12:55 SF [facility] [id number]) Intravenous Solution Start Date 03/23/17 Start Time 12:55 End Date 03/23/17 End time 13:56 Total Infusion Time 61 Sodium Chloride (Sodium Chloride 0.9%) 1,000 mls @ 999 mls/hr IV .Q1H1M STA Stop: 03/23/17 14:03 Last Admin: 03/23/17 13:26 Dose: 999 mls/hr eMAR Start Stop Document 03/23/17 13:26 SF (Rec: 03/23/17 13:26 SF [facility] [id number]) Intravenous Solution Start Date 03/23/17 Start Time 13:26 End Date 03/23/17 End time 14:27 Total Infusion Time 61 Ketorolac Tromethamine (Toradol) 10 mg IVP STAT STA Stop: 03/23/17 12:34 Last Admin: 03/23/17 12:55 Dose: 10 mg MAR Pain Assessment Document 03/23/17 12:55 SF (Rec: 03/23/17 12:56 SF [facility] [id number]) Pain Reassessment Is this a pain reassessment? Yes Sleep Is patient sleeping during reassessment? No Presence of Pain Presence of Pain Yes Pain Scale Used Pain Scale Used Numeric IVP Administration Document 03/23/17 12:55 SF (Rec: 03/23/17 12:56 SF [id number]) Charges for Administration # of IVP Administrations 1 Metoclopramide HCl (Reglan) 10 mg IVP STAT STA Stop: 03/23/17 13:03 Last Admin: 03/23/17 13:25 Dose: 10 mg IVP Administration Document 03/23/17 13:25 SF (Rec: 03/23/17 13:25 SF [id number]) Charges for Administration # of IVP Administrations 1 Morphine Sulfate (Morphine) 8 mg IVP STAT STA Stop: 03/23/17 13:45 Last Admin: 03/23/17 15:15 Dose: 8 mg MAR Pain Assessment Document 03/23/17 15:15 SF (Rec: 03/23/17 15:15 SF [id number]) Pain Reassessment Is this a pain reassessment? Yes Sleep Is patient sleeping during reassessment? No Presence of Pain Presence of Pain Yes Pain Scale Used Pain Scale Used Numeric Location Pain Location Body Site Abdomen Description Description Constant Pain Behavior Moaning Restlessness IVP Administration Document 03/23/17 15:15 SF (Rec: 03/23/17 15:15 SF [facility] [id number]) Charges for Administration # of IVP Administrations 2 Ondansetron HCl (Zofran Inj) 4 mg IVP ONCE ONE Stop: 03/23/17 12:32 Last Admin: 03/23/17 12:55 Dose: 4 mg IVP Administration Document 03/23/17 12:55 SF (Rec: 03/23/17 12:55 SF [facility] [id number]) Charges for Administration # of IVP Administrations 1 - Scribe Statement The provider has reviewed the documentation as recorded by the Scribe Lucretia Braxton Provider Scribe Attestation: All medical record entries made by the Scribe were at my direction and personally dictated by me. I have reviewed the chart and agree that the record accurately reflects my personal performance of the history, physical exam, medical decision making, and the department course for this patient. I have also personally directed, reviewed, and agree with the discharge instructions and disposition. Disposition/Present on Arrival - Present on Arrival Any Indicators Present on Arrival: No History of DVT/PE: No History of Uncontrolled Diabetes: No Urinary Catheter: No History of Decub. Ulcer: No History Surgical Site Infection Following: None - Disposition Have Diagnosis and Disposition been Completed?: Yes Diagnosis: Vomiting, Chronic abdominal pain Disposition: HOME/ ROUTINE Disposition Time: 18:17 Condition: IMPROVED Referrals: Donavan Adams MD [Primary Care Provider] - Follow up with primary Forms: [employer] (Faroese)
[2017-03-23 13:24] LABS: ALB/GLOB RATIO 1.5 (1.1-1.8); ALBUMIN 4.4 g/dL (3.0-4.8); ALT/SGPT 27 U/L (7-56); AST/SGOT 54 U/L (14-36); BLOOD UREA NITROGEN 13 mg/dL (7-21); CALCIUM 9.4 mg/dL (8.4-10.5); GFR AFRICAN-AMERICAN > 60; GFR NON-AFRICAN AMERICAN > 60; LIPASE 101 U/L (23-300)
[2017-03-23] MEDS ORDERED: Morphine 4 mg/ml ISec IVP STA (13:44)
[2017-03-23] MEDS ORDERED: Sodium Chloride 0.9% 1,000 ML IV ONE (19:55)
[2017-03-23] MEDS: Morphine 2 mg/ml ISec IVP PRN (22:30)
[2017-03-23 22:41] LABS: BARBITURATES, UR NEGATIVE (NEGATIVE); PHENCYCLIDINE, UR NEGATIVE (NEGATIVE)
[2017-03-23 22:47] LABS: BENZODIAZEPINES, UR POSITIVE (NEGATIVE); OPIATES, UR POSITIVE (NEGATIVE)
[2017-03-23 22:58] VITALS: RESP 20; BMI 21.9
[2017-03-24] MEDS: Morphine 2 mg/ml ISec IVP PRN ×3 (02:12→10:11)
[2017-03-24] MEDS: Sodium Chloride 0.9% 1,000 ML IV SCH (09:41)
--- NOTE | 2017-03-24 12:18 | CON ---
GASTROENTEROLOGY CONSULTATION DATE: 03/24/2017 REQUESTING PHYSICIAN: Dr. Donavan Adams. REASON FOR CONSULTATION : I have been asked to see this 56-year-old female with chronic recurrent abdominal pain who comes to the hospital with 1 day of diffuse abdominal pain, nausea, and vomiting. The patient has had 11 emergency room visits as well as several hospitalizations in the last calendar year for similar symptoms. Multiple radiographic imaging with CT scans have been unrevealing for a cause of her abdominal pain. She did have a upper endoscopy back in 07/2016, which revealed fundic gastritis. The patient has a history of polysubstance abuse. She states that on , she had several glasses of wine and smoked cocaine. Her urine toxicology screen is positive for opiates, cocaine, and cannabis. She currently is requesting for morphine IV every 3-4 hours. She denies any further nausea, vomiting. She denies hematemesis, rectal bleeding, or melena. She denies any fevers or chills. PAST MEDICAL HISTORY: Notable for chronic recurrent abdominal pain, polysubstance abuse, gastritis, and degenerative joint disease. PAST SURGICAL HISTORY: Notable for right hip replacement, right rotator cuff surgery. SOCIAL HISTORY: The patient smokes cannabis regularly. She smokes cocaine. Half pack of cigarettes daily for many years and consumes alcohol on a social basis. FAMILY HISTORY: Noncontributory. REVIEW OF SYSTEMS: A 14-point review of systems is notable for diffuse abdominal pain, nausea, and vomiting. MEDICATIONS : At home include Xanax 1 mg 3 times a day and Zofran 4 mg every 6 hours as needed for nausea. PHYSICAL EXAMINATION: GENERAL: A well-developed female lying in bed in no distress. VITAL SIGNS: Reveal temperature of 99.7, blood pressure 172/80, heart rate 72. HEENT: Reveal sclerae to be white. Conjunctivae pink. Oral mucosa is slightly dry. NECK: Supple. CHEST: Reveal lungs to be clear. HEART: Reveals a regular rate and rhythm. ABDOMEN: Soft, nontender. No mass. EXTREMITIES: Show no edema. LABORATORY DATA: Reveal white blood cell count 10.4, hemoglobin 14.5, platelet count 222,000. Chemistries reveal AST 54, ALT 27, alkaline phosphatase of 89. Electrolytes are normal. Lipase is normal. IMPRESSION: A 56-year-old female with history of polysubstance abuse with chronic recurrent abdominal pain. The patient does exhibit request for continued IV opiate analgesics [id number]. Her physical exam reveals a benign abdomen. There is no tenderness on palpation. She has had extensive workup for her abdominal pain in the past with an etiology of the abdominal pain unrevealing. RECOMMENDATIONS: 1. We will slowly taper her opiates/morphine sulfate IV. 2. We will start the patient on clear liquid diet and advance as tolerated. 3. If diet is tolerated, the patient can be discharged home with outpatient followup. Darwin Vázquez MD
--- NOTE | 2017-03-25 00:40 | HP ---
HISTORY OF PRESENT ILLNESS: This is a 56-year-old black female, history of hypertension, anxiety disorder, multiple admissions for intractable vomiting, history of substance abuse, cocaine and cannabis. The patient admitted to the hospital with intractable nausea and vomiting, abdominal pain, admitted for the Emergency Room, started on Dilaudid and IV hydration. The patient had been in the hospital CBC with Dr. Vázquez and to have workup for abdominal pain. PHYSICAL EXAMINATION: GENERAL: A well-developed, thin black female in moderate pain 8/10. ABDOMEN: Flat and nondistended. Bowel sounds are hyperactive. Abdomen is diffusely tender in all areas. There is no rebound or guarding. Bowel sounds are hypoactive. CHEST: Clear to auscultation and percussion. HEART: Regular sinus rhythm. NEUROLOGIC: Sensation is grossly intact. LABORATORY DATA: White count is 10.4, hemoglobin is 14.4, otherwise unremarkable. Blood gas was within normal limits. AST was 54, potassium is normal. Urine was positive for opiates, cocaine and cannabis. IMPRESSION: The patient will be hydrated, be treated for pain and released as soon as she can tolerate her liquids and solids. Donavan Adams MD
[2017-03-25 07:59] VITALS: BP 149/70; PULSE 59; TEMP 98.2; O2SAT 99
[2017-03-25] MEDS: Sodium Chloride 0.9% 1,000 ML IV SCH (09:24)
--- NOTE | 2017-03-25 12:24 | PN ---
DATE: 03/25/2017 SUBJECTIVE: A 56-year-old black female admitted to the hospital with polysubstance abuse, cannabis hyperemesis, and abdominal pain. The patient has been taken off of pain medications except for tramadol. Admits to using opiates, cannabis, and cocaine at home. Discussion with the patient about possible psych evaluation for detox, polysubstance abuse, and the patient is agreeable to talk to Dr. Trang López for possible psych evaluation and admission. Vital signs are stable. We will repeat the amylase and lipase and continue the whole pain medication except for tramadol and follow the patient. The patient's abdomen is soft. Bowel sounds are normoactive. There is no rebound or guarding. Donavan Adams MD
--- NOTE | 2017-03-25 15:21 | PN ---
DATE: 03/25/2017 SUBJECTIVE: The patient is lying in bed. Her abdominal pain, nausea, and vomiting have markedly improved. She is tolerating a clear liquid diet. She denies any fevers or chills. MEDICATIONS: Currently include Pepcid 20 mg IV once a day, tramadol 50 mg three times a day as needed for abdominal pain, Zofran 2 mg IV q.6 hours as needed, IV fluid of normal saline at 80 cc an hour. PHYSICAL EXAMINATION VITAL SIGNS: Reveal temperature of 98.2, blood pressure 149/70, heart rate of 59. HEENT: Reveals sclerae to be white. Conjunctivae pink. NECK: Supple. CHEST: Lungs are clear. HEART: Exam reveals regular rate and rhythm. ABDOMEN: Soft. Minimal mild diffuse tenderness. No rebound, no guarding. EXTREMITIES: Show no edema. LABORATORY DATA: Reveal no new laboratory results. IMPRESSION: A 56-year-old female with polysubstance abuse including cocaine, marijuana, alcohol, tobacco, with chronic recurrent abdominal pain, nausea and vomiting. The patient has had opiate-seeking behavior in the past. RECOMMENDATIONS: 1. Advance diet. 2. Psychiatry consult has been ordered. Darwin Vázquez MD cc:
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
--- NOTE | 2017-03-26 09:05 | CP.PCM.PCO ---
Physician Communication Note - Physician Communication Note Physician Communication Note: pt was d/c
== END 2017-03-25 11:59 | disposition home or self-care (01) ==
LOC: ED 12:04 → ERH 19:29 → 5RNO 22:22
PROVIDERS: ADMIT Internal Medicine; ATTEND Internal Medicine
DX: R10.9 Unspecified abdominal pain (principal); R11.2 Nausea with vomiting, unspecified; G89.29 Other chronic pain; I10 Essential (primary) hypertension; F14.10 Cocaine abuse, uncomplicated; F41.9 Anxiety disorder, unspecified; F12.10 Cannabis abuse, uncomplicated; F17.210 Nicotine dependence, cigarettes, uncomplicated; M19.90 Unspecified osteoarthritis, unspecified site; K29.70 Gastritis, unspecified, without bleeding; Z96.641 Presence of right artificial hip joint
CPT/HCPCS: 80053; 80324; 80345; 80346; 80349; 80353; 80358; 80361; 82803; 83690; 83992; 85025; 96361; 96374; 96375; 96376; 99285; G0378; J1200; J1885; J2270; J2405; J2765; J7040

== ENCOUNTER 2018-07-04 02:20 | Emergency (ER) | payer SELFPAY ==
[2018-07-04 02:29] VITALS: BMI 25.8
[2018-07-04 02:37] VITALS: BP 133/83; PULSE 83; RESP 16; TEMP 98.3; O2SAT 100
--- NOTE | 2018-07-04 02:46 | ED PDOC ---
Arrival/HPI - General Chief Complaint: Bite Time Seen by Provider: 07/04/18 02:39 Historian: Patient - History of Present Illness Narrative History of Present Illness (Text): 07/04/18 02:44 Nereida Rahman is a Nereida Rahman is a 57 year old female, whose past medical history includes recurrent abdominal pain, gastritis, substance abuse, anxiety, and depression, who presents to the emergency department complaining of a bug bite. Patient states she was sitting at home when she felt a slight burning sensation to her posterior thigh. Patient sustained a bug bite posterior right side. Patient denies weakness/numbness/tingling in the extremity, decreased range of motor, trauma/injury, or any other complaints. Symptom Onset: Gradual Symptom Course: Unchanged Activities at Onset: Light Context: Home Past Medical History - Provider Review Nursing Documentation Reviewed: Yes - Infectious Disease Hx of Infectious Diseases: None - Tetanus Immunization Tetanus Immunization: Unknown - Reproductive Menopause: Yes - Past Medical History Past Medical History: No Previous - Cardiac Hx Cardiac Disorders: No - Pulmonary Hx Respiratory Disorders: Yes (SMOKES CIGARETTES 3 /DAY) - Neurological Hx Neurological Disorder: No - HEENT Hx HEENT Disorder: No - Renal Hx Renal Disorder: No - Endocrine/Metabolic Hx Endocrine Disorders: No - Hematological/Oncological Hx Blood Disorders: No - Integumentary Hx Dermatological Disorder: No - Musculoskeletal/Rheumatological Hx Musculoskeletal Disorders: Yes Hx Falls: Yes - Gastrointestinal Hx Gastrointestinal Disorders: Yes Hx Gall Bladder Disease: Yes - Genitourinary/Gynecological Hx Genitourinary Disorders: No - Psychiatric Hx Psychophysiologic Disorder: Yes Hx Anxiety: Yes Hx Depression: Yes Hx Substance Use: Yes (Marijuana) - Surgical History Hx Orthopedic Surgery: Yes (right hip replacement, right rotator cuff) Other/Comment: RIGHT SHOULDER SX, - Anesthesia Hx Anesthesia: Yes Hx Anesthesia Reactions: No Hx Malignant Hyperthermia: No - Suicidal Assessment Feels Threatened In Home Enviroment: No Family/Social History - Physician Review Nursing Documentation Reviewed: Yes Family/Social History: Unknown Family HX Smoking Status: Light Smoker < 10 Cigarettes Daily Hx Alcohol Use: Yes (Ocassionally) Frequency of alcohol use: Few days per week Hx Substance Use: Yes (Marijuana) Substance used: weed Hx Substance Use Treatment: No Allergies/Home Meds Allergies/Adverse Reactions: Allergies blueberry Allergy (Verified 07/04/18 02:34) URTICARIA shellfish derived Allergy (Verified 07/04/18 02:34) RASH Home Medications: Home Meds Medication Instructions Recorded Confirmed ALPRAZolam [Xanax] 1 mg PO TID PRN 01/04/17 07/04/18 Review of Systems - Physician Review All systems were reviewed & negative as marked: Yes - Review of Systems Constitutional: Normal. absent: Fevers Eyes: Normal ENT: Normal Respiratory: Normal. absent: SOB, Cough Cardiovascular: Normal. absent: Chest Pain Gastrointestinal: Normal. absent: Abdominal Pain, Diarrhea, Nausea, Vomiting Genitourinary Female: Normal. absent: Dysuria, Frequency, Hematuria, Urine Output Changes Musculoskeletal: Normal. absent: Back Pain, Neck Pain Skin: Other (+right posterior thigh bug bite) Neurological: Normal. absent: Headache, Dizziness Endocrine: Normal Hemo/Lymphatic: Normal Psychiatric: Normal Physical Exam Vital Signs Reviewed: Yes Vital Signs Temp Pulse Resp BP Pulse Ox 07/04/18 02:34 98.3 F 83 16 133/83 100 Temperature: Afebrile Blood Pressure: Normal Pulse: Regular Respiratory Rate: Normal Appearance: Positive for: Well-Appearing, Non-Toxic, Comfortable Pain Distress: None Mental Status: Positive for: Alert and Oriented X 3 - Systems Exam Head: Present: Atraumatic, Normocephalic Pupils: Present: PERRL Extroacular Muscles: Present: EOMI Conjunctiva: Present: Normal Mouth: Present: Moist Mucous Membranes Neck: Present: Normal Range of Motion Respiratory/Chest: Present: Clear to Auscultation, Good Air Exchange. No: R espiratory Distress, Accessory Muscle Use Cardiovascular: Present: Regular Rate and Rhythm, Normal S1, S2. No: Murmurs Abdomen: No: Tenderness, Distention, Peritoneal Signs Back: Present: Normal Inspection Upper Extremity: Present: Normal Inspection. No: Cyanosis, Edema Lower Extremity: Present: NORMAL PULSES, Normal ROM, Erythema (3cm in diameter area of erythema to right posterior thigh), Neurovascularly Intact, Capillary Refill < 2 s. No: Edema, Tenderness, Swelling, Deformity, Temperature Abnormalties Neurological: Present: GCS=15, CN II-XII Intact, Speech Normal Skin: Present: Warm, Dry, Normal Color. No: Rashes Psychiatric: Present: Alert, Oriented x 3, Normal Insight, Normal Concentration Medical Decision Making ED Course and Treatment: 07/04/18 02:44 Impression: 57 year old female presents s/p bug bite to right posterior thigh. Plan: -- Atarax -- Keflex -- Reassess and disposition Prior Visits: Notes and results from previous visits were reviewed. Progress Notes: - Scribe Statement The provider has reviewed the documentation as recorded by the Scribe Katherine Velazquez All medical record entries made by the Scribe were at my direction and personally dictated by me. I have reviewed the chart and agree that the record accurately reflects my personal performance of the history, physical exam, medical decision making, and the department course for this patient. I have also personally directed, reviewed, and agree with the discharge instructions and disposition. Disposition/Present on Arrival - Present on Arrival Any Indicators Present on Arrival: No History of DVT/PE: No History of Uncontrolled Diabetes: No Urinary Catheter: No History of Decub. Ulcer: No History Surgical Site Infection Following: None - Disposition Have Diagnosis and Disposition been Completed?: Yes Diagnosis: Bite from insect Disposition: HOME/ ROUTINE Disposition Time: 03:15 Condition: GOOD Discharge Instructions (ExitCare): Insect Bites and Stings Prescriptions: hydrOXYzine HCl [Atarax] 25 mg PO TID #15 tab Cephalexin [Keflex] 500 mg PO BID #14 capsule Forms: [employer] (Kenyan)
== END 2018-07-04 03:15 | disposition home or self-care (01) ==
LOC: ED 02:20
DX: S70.361A Insect bite (nonvenomous), right thigh, initial encounter (principal); W57.XXXA Bitten or stung by nonvenomous insect and other nonvenomous arthropods, initial encounter